=== PATIENT | female | born 1950 ===

== ENCOUNTER → 2020-05-03 13:06 | Outpatient (BNVA) | payer OTHER, SELFPAY | PROVIDERS: PCP Internal Medicine; Referring Provider Internal Medicine Geriatric Medicine; Visit Provider Internal Medicine Pulmonary Disease | DX: Z76.89 Persons encountering health services in other specified circumstances (principal) ==

== ENCOUNTER → 2020-06-18 10:02 | Outpatient (BNVA) | payer OTHER, SELFPAY | PROVIDERS: PCP Internal Medicine; Visit Provider Internal Medicine Pulmonary Disease | DX: Z76.89 Persons encountering health services in other specified circumstances (principal) ==

== ENCOUNTER → 2020-11-04 08:58 | Outpatient (BNVA) | payer OTHER, SELFPAY | PROVIDERS: PCP Internal Medicine; Visit Provider Internal Medicine Pulmonary Disease ==

== ENCOUNTER → 2021-05-10 08:49 | Outpatient (BNVA) | payer OTHER, SELFPAY | PROVIDERS: PCP Internal Medicine; Visit Provider Internal Medicine Pulmonary Disease ==

== ENCOUNTER → 2021-11-04 08:26 | Outpatient (BNVA) | payer OTHER, MEDICARE, SELFPAY | PROVIDERS: PCP Internal Medicine; Visit Provider Internal Medicine Pulmonary Disease | DX: J44.9 Chronic obstructive pulmonary disease, unspecified (principal); Z91.09 Other allergy status, other than to drugs and biological substances | CPT/HCPCS: 99212 ==

== ENCOUNTER 2022-08-21 08:46 | Outpatient (REF) | payer OTHER, MEDICARE, SELFPAY ==
--- NOTE | 2022-08-21 13:11 | PFT_ITS ---
INDICATION: COPD. SPIROMETRY: FEV1 to FVC of 63% with an FEV1 of 1.79 L, which is 87% predicted and an FVC of 2.88 L, which is 105% predicted. No significant response to bronchodilators noted. Maximum voluntary ventilation 82% predicted. LUNG VOLUMES: Total lung capacity 99% predicted with expiratory residual volume 126% predicted. DIFFUSION CAPACITY: DLCO of 68% predicted. COMPARISONS: None. INTERPRETATION: There is an obstructive ventilatory defect consistent of mild COPD. No significant response to bronchodilators noted. Normal maximum voluntary ventilation. Lung volumes are within normal limits; however, the patient does have a moderate diffusion impairment. Need to consider underlying emphysematous changes and/or other parenchymal lung conditions should be considered. Clinical correlation warranted. Flaco Blank MD MR/MODJewell / [id number]
== END 2022-08-21 08:47 | disposition home or self-care (01) ==
LOC: HO.RESP 08:46
PROVIDERS: PCP Internal Medicine; Visit Provider Internal Medicine Pulmonary Disease
DX: J44.9 Chronic obstructive pulmonary disease, unspecified (principal)
CPT/HCPCS: 94060; 94727; 94729

== ENCOUNTER → 2022-12-01 09:07 | Outpatient (BNVA) | payer OTHER, MEDICARE, SELFPAY | PROVIDERS: PCP Internal Medicine; Visit Provider Internal Medicine Pulmonary Disease ==

== ENCOUNTER 2023-05-18 08:08 | Day surgery (SDC) | payer OTHER, MEDICARE, SELFPAY ==
--- NOTE | 2023-05-17 10:50 | P.CONAN_ITS ---
HPI - Anesthesia Eval Consult details Narrative: 72yo F for Colonoscopy PMFSH Active Problems Active Problems: All Active Problems (Updated 05/17/23 @ 08:17 by Ashleigh Perry) Pulmonary nodules (Acute) Environmental allergies (Acute) Dyspnea on exertion (Acute) Moderate COPD (chronic obstructive pulmonary disease) (Acute) Past Medical History Medical History Anxiety and depression Migraine headache Degenerative joint disease Osteoporosis Lung nodule COPD (chronic obstructive pulmonary disease) Diabetes mellitus, type 2 Personal history of nicotine dependence History of thyroid cancer History of colon cancer (~2016) GERD (gastroesophageal reflux disease) HLD (hyperlipidemia) HTN (hypertension) Hypothyroidism, postsurgical Primary adenocarcinoma of lower lobe of right lung (~2019) Family History Family History Mother Breast cancer Surgical History Surgical History History of hysterectomy History of thyroidectomy History of lobectomy of lung (~2019) History of partial colectomy (~2016) Social History Social History Patient Tobacco Use Status: Never used Tobacco Years Smoked: 56 years Use of substances other than those prescribed or required for medical reasons: No Are you DNR?: No Advance Directives: No Advance Directives Information Provided: Yes Meds Allergies Allergy/AdvReac Type Severity Reaction Status Date / Time bee pollen [BEE STINGS] Allergy Unknown SWELLING Verified 05/18/23 08:44 dexamethasone [From DECADRON] Allergy Unknown PARANOIA Verified 05/18/23 08:44 grass pollen Allergy Unknown Verified 05/18/23 08:44 ragweed pollen Allergy Unknown Verified 05/18/23 08:44 sulfamethoxazole Allergy Rash Verified 05/18/23 08:44 [From Bactrim] trimethoprim [From Bactrim] Allergy Rash Verified 05/18/23 08:44 Home Medications Medication Instructions Recorded Confirmed Last Taken Type acetaminophen 300 mg-codeine 30 mg 1 tab PO DAILY PRN Pain 05/03/20 05/18/23 Unknown History tablet ciclopirox 1 % shampoo 1 ml topical DAILY 05/03/20 05/18/23 Unknown History ergocalciferol (vitamin D2) 1,250 1,250 mcg PO QWEEK 05/03/20 05/18/23 Unknown History mcg (50,000 unit) capsule ipratropium 20 mcg-albuterol 100 1 puff inhalation QID 05/03/20 05/18/23 Unknown History mcg/actuation mist for inhalation levothyroxine 125 mcg tablet 125 mcg PO DAILY 05/03/20 05/18/23 Unknown History lisinopril 30 mg tablet 30 mg PO DAILY 05/03/20 05/18/23 05/18/23 History lorazepam 1 mg tablet 1 mg PO TID 05/03/20 05/18/23 Unknown History omeprazole 20 mg capsule,delayed 20 mg PO DAILY 05/03/20 05/18/23 Unknown H istory release brimonidine 0.2 % eye drops 1 drp ophthalmic (eye) BID 05/17/23 05/17/23 Unknown History bupropion HCl 150 mg tablet,12 hr 150 mg PO BID 05/17/23 05/17/23 Unknown History sustained-release glipizide 2.5 mg tablet, extended 2.5 mg PO DAILY 05/17/23 05/17/23 Unknown History release 24 hr ipratropium 20 mcg-albuterol 100 1 - 2 puff inhalation Q4H PRN 05/17/23 05/17/23 Unknown History mcg/actuation mist for inhalation asthma (Combivent Respimat) methocarbamol 750 mg tablet 750 mg PO QID 05/17/23 05/17/23 Unknown History rosuvastatin 5 mg tablet 5 mg PO DAILY 05/17/23 05/17/23 Unknown History Exam Exam Date and Time: May 17, 2023 1050 Assessment and Plan Assessment Anesthesia Assessment: Chart Reviewed
[2023-05-18 08:31] VITALS: BMI 26.4
--- NOTE | 2023-05-18 08:39 | HO.ANESPROP2 ---
[facility] Active Problems Active Problems: All Active Problems (Updated 05/17/23 @ 08:17 by Ashleigh Perry) Pulmonary nodules (Acute) Environmental allergies (Acute) Dyspnea on exertion (Acute) Moderate COPD (chronic obstructive pulmonary disease) (Acute) Past Medical History Medical History Anxiety and depression Migraine headache Degenerative joint disease Osteoporosis Lung nodule COPD (chronic obstructive pulmonary disease) Diabetes mellitus, type 2 Personal history of nicotine dependence History of thyroid cancer History of colon cancer (~2016) GERD (gastroesophageal reflux disease) HLD (hyperlipidemia) HTN (hypertension) Hypothyroidism, postsurgical Primary adenocarcinoma of lower lobe of right lung (~2019) Functional capacity: independent ambulation Family History Family History Mother Breast cancer Surgical History Surgical History History of hysterectomy History of thyroidectomy History of lobectomy of lung (~2019) History of partial colectomy (~2016) Social History Social History Years Smoked: 56 years Advance Directives: No Advance Directives Information Provided: Yes Meds Allergies Allergy/AdvReac Type Severity Reaction Status Date / Time bee pollen [BEE STINGS] Allergy Unknown SWELLING Verified 12/01/22 09:13 dexamethasone [From DECADRON] Allergy Unknown PARANOIA Verified 12/01/22 09:13 grass pollen Allergy Unknown Verified 12/01/22 09:13 ragweed pollen Allergy Unknown Verified 12/01/22 09:13 sulfamethoxazole Allergy Rash Verified 05/17/23 08:11 [From Bactrim] trimethoprim [From Bactrim] Allergy Rash Verified 05/17/23 08:11 Active Medications: Current Medications Albuterol Sulfate (Albuterol Sulfate (0.083%) 2.5 Mg/3 Ml Vial.Neb) 2.5 mg INHALE ONCE PRN PRN Reason: Shortness of Breath/Wheezing Lactated Ringer's (Lr) 1,000 mls @ 100 mls/hr IVCONT .Q10H [facility] Home Medications Medication Instructions Recorded Confirmed Last Taken Type acetaminophen 300 mg-codeine 30 mg tab PO 05/03/20 Unknown History tablet ciclopirox 1 % shampoo ml topical 05/03/20 Unknown History ergocalciferol (vitamin D2) 1,250 1,250 mcg PO QWEEK 05/03/20 Unknown History mcg (50,000 unit) capsule ipratropium 20 mcg-albuterol 100 1 puff inhalation QID 05/03/20 Unknown History mcg/actuation mist for inhalation levothyroxine 125 mcg tablet mcg PO 05/03/20 Unknown History lisinopril 30 mg tablet 30 mg PO DAILY 05/03/20 Unknown History lorazepam 1 mg tablet 1 mg PO TID 05/03/20 Unknown History omeprazole 20 mg capsule,delayed 20 mg PO DAILY 05/03/20 Unknown History release brimonidine 0.2 % eye drops 1 drp ophthalmic (eye) BID 05/17/23 05/17/23 Unknown History bupropion HCl 150 mg tablet,12 hr 150 mg PO BID 05/17/23 05/17/23 Unknown History sustained-release glipizide 2.5 mg tablet, extended 2.5 mg PO DAILY 05/17/23 05/17/23 Unknown History release 24 hr ipratropium 20 mcg-albuterol 100 1 - 2 puff inhalation Q4H PRN 05/17/23 05/17/23 Unknown History mcg/actuation mist for inhalation asthma (Combivent Respimat) methocarbamol 750 mg tablet 750 mg PO QID 05/17/23 05/17/23 Unknown History rosuvastatin 5 mg tablet 5 mg PO DAILY 05/17/23 05/17/23 Unknown History terbinafine HCl 250 mg tablet 250 mg PO DAILY 05/17/23 05/17/23 Unknown History Exam Exam Date and Time: May 18, 2023 0839 Airway Mallampati Class: II TM Dist: >3cm Neck ROM: Full Denture: Upper and Lower Heart: RRR Lungs: CTA Assessment and Plan Assessment Anesthesia Assessment: Anesthesia Plan Discussed Final Anesthetic Review ASA Class: II and III Final Preanesthetic Review: Meds/Allgs Chart Reviewed, Consent Obtained/Reviewed and Anes Risks/Benef Reviewed Patient Risk: Low Procedure Risk: Low Anesthetic Plan Anesthetic Plan: MAC: Disposition: Standard PACU
[2023-05-18] MEDS: Lactated Ringers 1,000 ML 100 ML IVCONT (08:50)
[2023-05-18 08:54] VITALS: BP 121/87; PULSE 95; RESP 16; TEMP 36.2; O2SAT 95
[2023-05-18 09:13] LABS: Glucose, Whole Blood 163 mg/dL (60-115)
--- NOTE | 2023-05-18 09:50 | MHC.SHP ---
Pre-Procedural Eval Section A Date of Service: 05/18/23 Section B Chief Complaint: hx malignant neoplasm,screening Details of Present Illness: see H&P no changes Relevant Family History (Specify if Yes): No Relevant Social History: None Present Medications: see Short Stay Collaborative assessment Medical History: No relevant PMH History of Previous Operations: No relevant previous surgery Allergies: Allergies Allergy/AdvReac Type Severity Reaction Status Date / Time bee pollen [BEE STINGS] Allergy Unknown SWELLING Verified 05/18/23 08:44 dexamethasone [From DECADRON] Allergy Unknown PARANOIA Verified 05/18/23 08:44 grass pollen Allergy Unknown Verified 05/18/23 08:44 ragweed pollen Allergy Unknown Verified 05/18/23 08:44 sulfamethoxazole Allergy Rash Verified 05/18/23 08:44 [From Bactrim] trimethoprim [From Bactrim] Allergy Rash Verified 05/18/23 08:44 Review of Systems Sugical H&P ROS: Negative: Constitution, Cardiovascular, Respiratory, Neurological, Psychiatric, Hem-Onc, Allergic/Immunologic, Gastrointestinal, Genitourinary, Musculoskeletal, Integumentary, Endocrine and Eyes/Ears/Nose/Throat Exam Surgical H&P Exam: Normal: HEENT, Normal: Heart, Normal: Lungs, Normal: Extremities, Normal: Abdomen, Normal: Skin and Normal: Neurological Plan Diagnosis/Plan: Unchanged I have reviewed the history and physical and performed a pertinent physical examination on my patient. No changes have occurred unless specified. Time Spent With Patient Time: Total time managing care of this patient today ____ minutes.
--- NOTE | 2023-05-18 10:25 | P.BOP_ITS ---
Brief Operative Note Date of Service: 05/18/23 Pre-op diagnosis: screening Post-op diagnosis: same Surgeon: Gonzalo Stephen MD Anesthesia: MAC Was an Medical Territory Manager used for this Procedure?: No Estimated blood loss (mL): 2 Pathology: other Condition: stable Disposition: PACU
[2023-05-18 10:26] VITALS: BP 83/50; PULSE 75; RESP 16; TEMP 36.2; O2SAT 94
[2023-05-18 10:31] VITALS: BP 96/56; PULSE 69; RESP 20; O2SAT 94
--- NOTE | 2023-05-18 10:39 | HO.POSTANES ---
Post Anesthesia Evaluation Post Anesthesia Evaluation Date of Service: 05/18/23 Vital Signs: Vital Signs Temp Pulse Resp BP Pulse Ox O2 Del Method 05/18/23 10:31 69 20 96/56 L 94 Room Air 05/18/23 10:26 97.1 F 75 16 83/50 L 94 Room Air 05/18/23 08:54 97.1 F 95 16 121/87 95 Room Air Anesthesia: Monitored Mental Status: Awake Pain Control: Satisfactory Nausea/Vomiting: None Hydration: Adequate Anesthesia-Related Issues: No Anes. Related Issues
[2023-05-18 10:41] VITALS: BP 124/69; PULSE 72; RESP 20; TEMP 36.3; O2SAT 97
--- NOTE | 2023-05-18 11:07 | OP_ITS ---
DATE OF SERVICE: 05/18/2023 SURGEON: Gonzalo Stephen MD INDICATIONS: Colon cancer screening and personal history of colon cancer. PREOPERATIVE DIAGNOSIS: POSTOPERATIVE DIAGNOSIS: PROCEDURE PERFORMED: Colonoscopy to the neoterminal ileum with biopsy. ESTIMATED BLOOD LOSS: COMPLICATIONS: ANESTHESIA: Monitored anesthesia care. ASSISTANTS: SPECIMENS: DESCRIPTION OF PROCEDURE: A history and physical was performed. The risks and benefits of the procedure were explained to the patient. Informed consent was obtained. The patient was placed in the left lateral decubitus position. A digital rectal exam was performed and was found to be normal. The Olympus pediatric video colonoscope was introduced into the rectum and advanced to the ileocolonic anastomosis. The examination was performed. The scope was removed. She tolerated the procedure well and was returned to the recovery area in stable condition. FINDINGS: There was a patent ileocolonic anastomosis in the right colon from her previous surgery. This showed no evidence of recurrent carcinoma. The neoterminal ileum was examined for approximately 15 to 20 cm and appeared normal. The remainder of the colonic mucosa appeared within normal limits without evidence of masses or ulcers. In the rectum, were several hyperplastic appearing polyps measuring less than 5 mm. Two of these were biopsied. There was mild sigmoid diverticulosis. The quality of the prep was good. Retroflexed examination showed some hypertrophic anal papillae. IMPRESSION: Colon polyps. RECOMMENDATION: Follow up the biopsy results. MD LEONEL Velazquez/THANH / [id number] MTDD
== END 2023-05-18 11:03 | disposition home or self-care (01) ==
PROVIDERS: PCP Internal Medicine; Visit Provider Internal Medicine Gastroenterology
PROC: 0DJD8ZZ Inspection of Lower Intestinal Tract, Via Natural or Artificial Opening Endoscopic (ICD-10-PCS; CPT 45378; principal; 2023-05-18 09:40)
DX: Z12.11 Encounter for screening for malignant neoplasm of colon (principal); Z85.038 Personal history of other malignant neoplasm of large intestine; K62.1 Rectal polyp; Z98.0 Intestinal bypass and anastomosis status; Z90.49 Acquired absence of other specified parts of digestive tract; K57.30 Diverticulosis of large intestine without perforation or abscess without bleeding; K62.89 Other specified diseases of anus and rectum; I10 Essential (primary) hypertension; J44.9 Chronic obstructive pulmonary disease, unspecified; R91.1 Solitary pulmonary nodule; Z90.2 Acquired absence of lung [part of]; E78.5 Hyperlipidemia, unspecified; F41.8 Other specified anxiety disorders; M81.0 Age-related osteoporosis without current pathological fracture; M19.90 Unspecified osteoarthritis, unspecified site; E11.9 Type 2 diabetes mellitus without complications; Z79.84 Long term (current) use of oral hypoglycemic drugs; Z79.51 Long term (current) use of inhaled steroids; Z79.899 Other long term (current) drug therapy; Z85.850 Personal history of malignant neoplasm of thyroid; Z87.891 Personal history of nicotine dependence
CPT/HCPCS: 45380; 82947; 88305

== ENCOUNTER 2023-06-26 09:20 | Outpatient (AMB) | payer OTHER, MEDICARE, SELFPAY ==
[2023-06-26 09:21] VITALS: BP 150/64; PULSE 85; O2SAT 98; BMI 25.8
--- NOTE | 2023-06-26 09:21 | A.OFFVIS_ITS ---
Intake Vital Signs 06/26/23 09:21 Height 5 ft 3 in Weight 145 lb 8.081 oz BMI 25.8 BP 150/64 H Blood Pressure Location Lt brachial Position Sitting Pulse 85 Pulse Source Doppler Pulse Oximetry (%) 98 Oxygen Delivery Method Room Air Intake Visit Reasons: COPD Allergies bee pollen [BEE STINGS] Allergy (Unknown, Verified 06/26/23 09:26) SWELLING dexamethasone [From DECADRON] Allergy (Unknown, Verified 06/26/23 09:26) PARANOIA grass pollen Allergy (Verified 06/26/23 09:) Unknown ragweed pollen Allergy (Verified 06/26/23 09:) Unknown sulfamethoxazole [From Bactrim] Allergy (Verified 06/26/23:) Rash trimethoprim [From Bactrim] Allergy (Verified 06/26/23:) Rash HPI COPD HPI Details 72-year-old lady, former 55 pack years+ smoker, quit 2015 with history of right lower lobe lobectomy for adenocarcinoma in February of 2020 followed for moderate COPD.? She continues to use Anoro and Combivent with good control of her underlying symptoms.? She denies any recent COPD exacerbations.? She was evaluated by ENT and noted to have deviated septum. No significant changes since last visit. She continues to follow-up with thoracic surgery for underlying history of right lower lobe lobectomy for adenocarcinoma. [facility] Medical History Anxiety and depression Migraine headache Degenerative joint disease Osteoporosis Lung nodule COPD (chronic obstructive pulmonary disease) Diabetes mellitus, type 2 Personal history of nicotine dependence History of thyroid cancer History of colon cancer (~2016) GERD (gastroesophageal reflux disease) HLD (hyperlipidemia) HTN (hypertension) Hypothyroidism, postsurgical Primary adenocarcinoma of lower lobe of right lung (~2019) Surgical History History of hysterectomy History of thyroidectomy History of lobectomy of lung (~2019) History of partial colectomy (~2016) Family History Mother Breast cancer Patient Tobacco Use Status: Never used Tobacco Years Smoked: 56 years Review of Systems Const Denies daytime sleepiness, Denies excessive sweating, Denies fatigue, Denies fever(s), Denies lethargy, Denies malaise, Denies night sweats, Denies snoring and Denies weight loss Eyes Denies blurry vision and Denies itchy eyes ENT Denies nasal congestion, Denies post nasal drip, Denies sinus pain, Denies sinus pressure and Denies other ( Thrush) Card Denies chest pain, Denies pedal edema, Denies dyspnea, Denies orthopnea and Denies paroxysmal nocturnal dyspnea Resp Denies cough, Denies hemoptysis, Denies excessive phlegm production, Denies dyspnea, Denies snoring and Denies wheezing GI Denies abdominal pain and Denies heartburn Musc Denies myalgias, Denies arthralgias and Denies joint swelling Skin/Breast Denies rash Neuro Denies memory loss and Denies seizure-like activity Psych Denies abnormal sleep pattern, Denies anxiety and Denies memory loss Endo Denies excessive sweating, Denies fatigue and Denies heat intolerance Alexander/Lymph Denies easy bruising Aller/Immun Denies itchy eyes, Denies seasonal rhinorrhea and Denies wheezing Physical Exam Vital Signs: Last Vital Signs Pulse 85 06/26/23 09:21 BP 150/64 H 06/26/23 09:21 Pulse Ox 98 06/26/23 09:21 Oxygen Delivery Method Room Air 06/26/23 09:21 BMI result Body Mass Index 25.8 Const General: no acute distress and alert Nutritional Appearance: not obese Orientation/consciousness: Other orientation findings ( oriented) HEENT Head: Yes atraumatic Eyes General: appearance normal, both eyes and all related structures Sclerae: sclerae normal EOM: EOMs intact bilaterally Neck Neck: Yes supple Lymphatic: no lymphadenopathy noted Resp Effort & Inspection: normal respiratory effort and no use of accessory muscles Auscultation: clear to auscultation bilaterally Cardio Rate: regular rate Rhythm: regular rhythm Heart sounds: no gallops, no murmurs and no rubs Skin General skin exam: other ( warm) Extrem General: No clubbing, No cyanosis and No edema Assessment & Plan Assessment & Plan (1) Moderate COPD (chronic obstructive pulmonary disease): Code(s): J44.9 - Chronic obstructive pulmonary disease, unspecified Plan: Well controlled on current regimen of Anoro and Combivent. Continue current regimen (2) Pulmonary nodules: Code(s): R91.8 - Other nonspecific abnormal finding of lung field Plan: Status post right lower lobe lobectomy for adenocarcinoma. Patient continues to follow-up with thoracic surgery. Medications: Refilled umeclidinium-vilanterol 62.5-25 mcg/actuation (Anoro Ellipta) 1 ea PO DAILY 180 ea 3RF Coding Level of Care Code Est Pt Level 4 (51981) Diagnoses Moderate COPD (chronic obstructive pulmonary disease) J44.9 Pulmonary nodules R91.8
== END 2023-06-26 10:11 | disposition home or self-care (01) ==
PROVIDERS: PCP Internal Medicine; Visit Provider Internal Medicine Pulmonary Disease
DX: J44.9 Chronic obstructive pulmonary disease, unspecified (principal); R91.8 Other nonspecific abnormal finding of lung field
CPT/HCPCS: 99214

== ENCOUNTER → 2023-06-26 09:20 | Outpatient (BNVA) | payer OTHER, MEDICARE, SELFPAY | PROVIDERS: PCP Internal Medicine; Visit Provider Internal Medicine Pulmonary Disease ==

== ENCOUNTER 2024-06-20 10:07 | Outpatient (AMB) | payer OTHER, MEDICARE, SELFPAY ==
--- NOTE | 2024-06-20 10:11 | A.OFFVIS_ITS ---
Vital Signs 06/20/24 10:12 Height 5 ft 3 in Weight 145 lb 8.081 oz BMI 25.8 BP 122/78 Blood Pressure Location Lt brachial Position Sitting Pulse 103 H Pulse Source Doppler Pulse Oximetry (%) 96 Oxygen Delivery Method Room Air Intake Visit Reasons: COPD Allergies bee pollen [BEE STINGS] Allergy (Unknown, Verified 06/26/23 09:26) SWELLING dexamethasone [From DECADRON] Allergy (Unknown, Verified 06/26/23 09:26) PARANOIA grass pollen Allergy (Verified 06/26/23 09:) Unknown ragweed pollen Allergy (Verified 06/26/23 09:) Unknown sulfamethoxazole [From Bactrim] Allergy (Verified 06/26/23:) Rash trimethoprim [From Bactrim] Allergy (Verified 06/26/23) Rash HPI HPI COPD: Details: 73-year-old lady, former 55 pack years+ smoker, quit 2015 with history of right lower lobe lobectomy for adenocarcinoma in February of 2020 followed for moderate COPD.? She continues to use Anoro and Combivent with good control of her underlying symptoms.? She denies any recent COPD exacerbations.?She continues to follow-up with thoracic surgery for underlying history of right lower lobe lobectomy for adenocarcinoma. [facility] Medical History (Updated 06/20/24 @ 10:29 by Vitaliy Pino MD) Anxiety and depression Migraine headache Degenerative joint disease Osteoporosis Lung nodule COPD (chronic obstructive pulmonary disease) Diabetes mellitus, type 2 Personal history of nicotine dependence History of thyroid cancer History of colon cancer (~2016) GERD (gastroesophageal reflux disease) HLD (hyperlipidemia) HTN (hypertension) Hypothyroidism, postsurgical Primary adenocarcinoma of lower lobe of right lung (~2019) Surgical History History of hysterectomy History of thyroidectomy History of lobectomy of lung (~2019) History of partial colectomy (~2016) Family History Mother Breast cancer Social History Patient Tobacco Use Status: Never used Tobacco Years Smoked: 56 years Review of Systems Const Denies daytime sleepiness, Denies excessive sweating, Denies fatigue, Denies fever(s), Denies lethargy, Denies malaise, Denies night sweats, Denies snoring and Denies weight loss Eyes Denies blurry vision and Denies itchy eyes ENT Denies nasal congestion, Denies post nasal drip, Denies sinus pain, Denies sinus pressure and Denies other ( Thrush) Card Denies chest pain, Denies pedal edema, Denies dyspnea, Denies orthopnea and Denies paroxysmal nocturnal dyspnea Resp Denies cough, Denies hemoptysis, Denies excessive phlegm production, Denies dyspnea, Denies snoring and Denies wheezing GI Denies abdominal pain and Denies heartburn Musc Denies myalgias, Denies arthralgias and Denies joint swelling Skin/Breast Denies rash Neuro Denies memory loss and Denies seizure-like activity Psych Denies abnormal sleep pattern, Denies anxiety and Denies memory loss Endo Denies excessive sweating, Denies fatigue and Denies heat intolerance Alexander/Lymph Denies easy bruising Aller/Immun Denies itchy eyes, Denies seasonal rhinorrhea and Denies wheezing Physical Exam Vital Signs: Last Vital Signs Pulse 103 H 06/20/24 10:12 BP 122/78 06/20/24 10:12 Pulse Ox 96 06/20/24 10:12 Oxygen Delivery Method Room Air 06/20/24 10:12 BMI result Body Mass Index 25.8 Const General: no acute distress and alert Nutritional Appearance: not obese Orientation/consciousness: Other orientation findings ( oriented) HEENT Head: Yes atraumatic Eyes General: appearance normal, both eyes and all related structures Sclerae: sclerae normal EOM: EOMs intact bilaterally Neck Neck: Yes supple Lymphatic: no lymphadenopathy noted Resp Effort & Inspection: normal respiratory effort and no use of accessory muscles Auscultation: clear to auscultation bilaterally Cardio Rate: regular rate Rhythm: regular rhythm Heart sounds: no gallops, no murmurs and no rubs Skin General skin exam: other ( warm) Extrem General: No clubbing, No cyanosis and No edema Assessment & Plan Assessment & Plan (1) Moderate COPD (chronic obstructive pulmonary disease): Code(s): J44.9 - Chronic obstructive pulmonary disease, unspecified Category: Medical Plan: Well controlled current regimen of Anoro and Combivent. Continue current regimen. (2) Primary adenocarcinoma of lower lobe of right lung: Onset Date: ~2019 Comment: (s/p RLL lobectomy 02/2020) Code(s): C34.31 - Malignant neoplasm of lower lobe, right bronchus or lung Category: Medical Plan: Continues to follow-up with thoracic surgery. No recurrence on most recent CT chest approximately 1 months prior to this visit, per patient. Coding Level of Care Code Est Pt Level 4 (59632) Diagnoses Moderate COPD (chronic obstructive pulmonary disease) J44.9 Primary adenocarcinoma of lower lobe of right lung C34.31
[2024-06-20 10:12] VITALS: BP 122/78; PULSE 103; O2SAT 96; BMI 25.8
== END 2024-06-20 10:28 | disposition home or self-care (01) ==
PROVIDERS: PCP Internal Medicine; Visit Provider Internal Medicine Pulmonary Disease
DX: J44.9 Chronic obstructive pulmonary disease, unspecified (principal); C34.31 Malignant neoplasm of lower lobe, right bronchus or lung
CPT/HCPCS: 99214

== ENCOUNTER → 2024-06-20 10:07 | Outpatient (BNVA) | payer OTHER, MEDICARE, SELFPAY | PROVIDERS: PCP Internal Medicine; Visit Provider Internal Medicine Pulmonary Disease ==

== ENCOUNTER 2025-06-17 08:52 | Outpatient (AMB) | payer OTHER, MEDICARE, SELFPAY ==
[2025-06-17 09:13] VITALS: BP 138/70; PULSE 91; O2SAT 99; BMI 24.6
--- NOTE | 2025-06-17 09:13 | A.OFFVIS_ITS ---
Vital Signs 06/17/25 09:13 Height 5 ft 3 in Weight 139 lb BMI 24.6 BP 138/70 Blood Pressure Location Rt brachial Position Sitting Pulse 91 Pulse Source Pulse Oximeter Pulse Oximetry (%) 99 Oxygen Delivery Method Room Air Intake Visit Reasons: COPD Allergies bee pollen (BEE STINGS) Allergy (Unknown, Verified 06/17/25 09:18) SWELLING dexamethasone (From DECADRON) Allergy (Unknown, Verified 06/17/25 09:18) PARANOIA grass pollen Allergy (Verified 06/17/25 09:18) Unknown ragweed pollen Allergy (Verified 06/17/25 09:18) Unknown sulfamethoxazole (From Bactrim) Allergy (Verified 06/17/25 09:18) Rash trimethoprim (From Bactrim) Allergy (Verified 06/17/25 09:18) Rash HPI HPI COPD: Details: 74-year-old lady, former 55 pack years+ smoker, quit 2015 with history of right lower lobe lobectomy for adenocarcinoma in February of 2020 followed for moderate COPD.? She continues to use Anoro and Combivent with good control of her underlying symptoms.? She denies any recent COPD exacerbations.?She continues to follow-up with thoracic surgery for underlying history of right lower lobe lobectomy for adenocarcinoma with recent follow-up CAT scan in April of 2025 showing no recurrence per patient's report. [facility] Medical History (Updated 06/20/24 @ 10:29 by Vitaliy Pino MD) Anxiety and depression Migraine headache Degenerative joint disease Osteoporosis Lung nodule COPD (chronic obstructive pulmonary disease) Diabetes mellitus, type 2 Personal history of nicotine dependence History of thyroid cancer History of colon cancer (~2016) GERD (gastroesophageal reflux disease) HLD (hyperlipidemia) HTN (hypertension) Hypothyroidism, postsurgical Primary adenocarcinoma of lower lobe of right lung (~2019) Surgical History History of hysterectomy History of thyroidectomy History of lobectomy of lung (~2019) History of partial colectomy (~2016) Family History Mother Breast cancer Social History Patient Tobacco Use Status: Never used Tobacco Years Smoked: 56 years Review of Systems Const Denies daytime sleepiness, Denies excessive sweating, Denies fatigue, Denies fever(s), Denies lethargy, Denies malaise, Denies night sweats, Denies snoring and Denies weight loss Eyes Denies blurry vision and Denies itchy eyes ENT Denies nasal congestion, Denies post nasal drip, Denies sinus pain, Denies sinus pressure and Denies other ( Thrush) Card Denies chest pain, Denies pedal edema, Denies dyspnea, Denies orthopnea and Denies paroxysmal nocturnal dyspnea Resp Denies cough, Denies hemoptysis, Denies excessive phlegm production, Denies dyspnea, Denies snoring and Denies wheezing GI Denies abdominal pain and Denies heartburn Musc Denies myalgias, Denies arthralgias and Denies joint swelling Skin/Breast Denies rash Neuro Denies memory loss and Denies seizure-like activity Psych Denies abnormal sleep pattern, Denies anxiety and Denies memory loss Endo Denies excessive sweating, Denies fatigue and Denies heat intolerance Alexander/Lymph Denies easy bruising Aller/Immun Denies itchy eyes, Denies seasonal rhinorrhea and Denies wheezing Physical Exam Vital Signs: Last Vital Signs Pulse 91 06/17/25 09:13 BP 138/70 06/17/25 09:13 Pulse Ox 99 06/17/25 09:13 Oxygen Delivery Method Room Air 06/17/25 09:13 BMI result Body Mass Index 24.6 Const General: no acute distress and alert Nutritional Appearance: not obese Orientation/consciousness: Other orientation findings ( oriented) HEENT Head: Yes atraumatic Eyes General: appearance normal, both eyes and all related structures Sclerae: sclerae normal EOM: EOMs intact bilaterally Neck Neck: Yes supple Lymphatic: no lymphadenopathy noted Resp Effort & Inspection: normal respiratory effort and no use of accessory muscles Auscultation: clear to auscultation bilaterally Cardio Rate: regular rate Rhythm: regular rhythm Heart sounds: no gallops, no murmurs and no rubs Skin General skin exam: other ( warm) Extrem General: No clubbing, No cyanosis and No edema Assessment & Plan Assessment & Plan (1) Moderate COPD (chronic obstructive pulmonary disease): Code(s): J44.9 - Chronic obstructive pulmonary disease, unspecified Category: Medical Plan: Well controlled on Anoro and Combivent. Continue current regimen. (2) Primary adenocarcinoma of lower lobe of right lung: Onset Date: ~2019 Comment: (s/p RLL lobectomy 02/2020) Code(s): C34.31 - Malignant neoplasm of lower lobe, right bronchus or lung Category: Medical Plan: Continues to follow-up with thoracic surgery, most recent CT scan in April of 2025 with no recurrence per patient's report. Coding Level of Care Code Est Pt Level 4 (17264) Diagnoses Moderate COPD (chronic obstructive pulmonary disease) J44.9 Primary adenocarcinoma of lower lobe of right lung C34.31
--- OUTSIDE RECORDS SUMMARY | 2025-06-17 16:30 | XMS_ITS | Clinical Summary ---
Author Organization [facility] Address [address] [address] Phone Care Team Providers Care Waste Reclaimer Name Role Phone Gulshan Zeng MD Primary Care Provider + Allergies Active Allergy Reactions Criticality Noted Date Comments Bee Pollen Anaphylaxis High 03/08/2010 Bee Venom Protein (Honey Bee) Anaphylaxis High 03/08/2010 Chlorthalidone 11/04/2018 Dexamethasone 03/08/2010 Other reaction(s): Other (See Comments) Irritation,shakiness,p aranoid Hydromorphone 06/11/2016 Other 03/08/2010 Sulfa (Sulfonamide Antibiotics) Itching 03/08/2010 Medications glipiZIDE (GLUCOTROL XL) 2.5 MG 24 hr tablet Take 1 tablet by mouth every morning. 3 Active buPROPion (WELLBUTRIN SR) 150 MG SR 12 hr tablet Take 1 tablet by mouth 2 (two) times a day. 3 Active rosuvastatin (CRESTOR) 5 MG tablet Take 1 tablet by mouth every morning. 3 Active omeprazole (PRILOSEC) 20 MG capsule Take 1 capsule by mouth every morning. 3 Active lisinopril (PRINIVIL,ZESTRIL) 10 MG tablet Take 30 mg by mouth daily. Active LORazepam (ATIVAN) 1 MG tablet Take 1 mg by mouth. Active methocarbamoL (ROBAXIN) 750 MG tablet TAKE 1 TABLET BY MOUTH 4 TIMES DAILY FOR 10 DAYS. 3 Active umeclidinium-vilant Teofilo (ANORO ELLIPTA) 62.5-25 mcg/actuation diskus inhaler Inhale into the lungs. Active ipratropium-albuter oL (COMBIVENT RESPIMAT) 20-100 mcg/actuation Mist Inhale 1 puff into the lungs 4 (four) times a day. Active levothyroxine (SYNTHROID, LEVOTHROID) 137 MCG tabletIndications:P ostoperative hypothyroidism Take 1 tablet (137 mcg total) by mouth every morning. 90 tablet 3 4 Active azelastine-fluticas one (DYMISTA) 137-50 mcg/spray [place] 1 spray by Nasal route as needed. Active brimonidine (ALPHAGAN) 0.2 % ophthalmic solution Place 1 drop into each eye 2 (two) times a day. 5 Active butalbital-acetamin ophen-caffeine (FIORICET, ESGIC) 50-325-40 mg per tablet Take 1 tablet by mouth every 4 (four) hours as needed. Active butalbital-acetamin ldizm-csrvqryi-roxh ine (FIORICET WITH CODEINE) 48-516-91-30 mg Cap Take 1 capsule by mouth every 6 (six) hours as needed. 5 Active hydroCHLOROthiazide 12.5 MG tablet Take 1 tablet by mouth every morning. 5 Active lidocaine (LIDODERM) 5 % Place 1 patch onto the skin as needed. 5 Active loratadine (CLARITIN) 10 mg tablet Take 1 tablet by mouth every morning. 5 Active olmesartan (BENICAR) 40 mg tablet Take 40 mg by mouth daily. 5 04/22/20 26 Active timoloL (BETIMOL) 0.5 % ophthalmic solution Place 1 drop into each eye 3 (three) times a day. 5 Active Active Problems Problem Noted Date Diagnosed Date History of malignant neoplasm of colon 5 History of lung cancer 05/04/2025 CKD (chronic kidney disease) stage 2, GFR 60-89 ml/min 04/22/2025 Postoperative hypothyroidism 05/29/2023 Assessment & Plan (06/04/2025 9:09 AM EST): Clinically euthyroid. Reports good consistency taking rx appropriately. Will check labs & adjust rx as appropriate. To call/message via portal if hasn't heard from me with results within 1-2 weeks. If levels normal, will repeat labs yearly, sooner prn symptoms of thyroid dysfunction or > 10-15# weight change, or as otherwise clinically indicated. Assessment & Plan (06/04/2024 12:51 PM EST): Clinically euthyroid. Reports good consistency taking rx appropriately. Will check labs & adjust rx as appropriate. To call/message via portal if hasn't heard from me with results within 1-2 weeks. If levels normal, will repeat labs yearly, sooner prn symptoms of thyroid dysfunction or > 10-15# weight change, or as otherwise clinically indicated. Assessment & Plan (05/29/2023 11:33 AM EDT): Clinically euthyroid. Reports good consistency taking rx appropriately. Will check labs & adjust rx as appropriate. To call/message via portal if hasn't heard from me with results within 1-2 weeks. If levels normal, will repeat labs yearly, sooner prn symptoms of thyroid dysfunction or > 10-15# weight change, or as otherwise clinically indicated. Other emphysema 04/16/2021 05/29/2023 Primary adenocarcinoma of lower lobe of right nell ng 04/06/2020 05/29/2023 Thyroid cancer 05/09/2019 05/29/2023 Overview (06/04/2024): PAPILLARY CARCINOMA, TALL CELL VARIANT (co-dominant nodule). (A2) - PAPILLARY CARCINOMA, CLASSICAL TYPE (co-dominant nodule). (A13) - PAPILLARY CARCINOMA, FOLLICULAR VARIANT, ENCAPSULATED, NON-INVASIVE. TUMOR SIZE: 0.6 cm (two co-dominant nodules). EXTENT OF TUMOR: - TUMOR FOCALITY: multifocal, 6 tumor nodules. - TUMOR SITE: left lobe, middle (co-dominant nodule, 1 nodule), left lobe, middle-superior (1 nodule), right lobe, superior (co-dominant nodule, 2 nodules), right lobe, middle (2 nodules). - TUMOR IS LIMITED TO THE THYROID WITHOUT EXTRATHYROIDAL EXTENSION. MARGINS OF RESECTION: - MARGIN OF RESECTION IS FREE OF TUMOR. - PAPILLARY THRYOID CARCINOMA IS 0.5 MM CLOSEST TO THE POSTERIOR CAPSULE. LYMPH NODES: - NUMBER OF LYMPH NODES EXAMINED: 2. - NUMBER OF LYMPH NODES INVOLVED: 0. ADDITIONAL TUMOR FEATURES: - LYMPHATIC VESSEL INVASION: not identified. - BLOOD VESSEL INVASION: not identified. - PERINEURAL INVASION: not identified. - MUSCLE INVASION: not identified. ADDITIONAL FINDINGS: - Jean's thyroiditis, biopsy site changes, adenomatoid nodules with and without Hurthle cell metaplasia, one benign parathyroid gland. SPECIAL STAIN: - Elastic: negative for tumor blood vessel invasion. - Control stains appropriately. PATHOLOGIC TUMOR STAGE: mpT1a, pN0. Assessment & Plan (06/04/2025 9:08 AM EST): Papillary thyroid CA, incidental finding 2019 on PET scan, s/p total thyroidectomy (by Dr. Mendez), subcm, multifocal, tall cell & classic, largest 6 mm, OSORIO was not indicated. Her neck u/s 06/2023 was unremarkable and thyroglobulin has remained. Will repeat today. Assessment & Plan (06/04/2024 12:55 PM EST): Papillary thyroid CA, incidental finding 2019 on PET scan, s/p total thyroidectomy (by Dr. Mendez), OSORIO was not indicated. Her neck u/s last year was unremarkable and thyroglobulin was low. Will repeat thyroglobulin and antibodies. Will call again for records from [facility]. Assessment & Plan (05/29/2023 11:34 AM EDT): Will call for records from [facility]. Will check thyroglobulin & antibodies. Will repeat ultrasound. Controlled type 2 diabetes m iris without complication, without long-term current use of insulin 11/19/2018 05/29/2023 Essential hypertension 06/07/2017 Assessment & Plan (06/04/2025 9:10 AM EST): BP mildly high today. Had a stressful morning, has been good @ home/work. To monitor, follow up with PCP. Colon cancer, ascending 05/22/2017 05/29/20 DJD (degenerative joint disease), lumbosacral 05/29/2023 Allergic rhinitis 10/10/2012 05/29/2023 Vitiligo 08/08/2012 05/29/2023 Overview (05/29/2023): Overview: ? due to sunburn Migraines 09/11/2011 05/29/2023 Overview (05/29/2023): Overview: History of occular migraines since age 10 Osteoporosis 09/11/2011 05/29/2023 High cholesterol 04/12/2010 05/29/2023 Anxiety 03/08/2010 05/29/2023 Overview (05/29/2023): Overview: Patient rarely has panic attacks. And rarely uses lorazepam Depression 03/08/2010 05/29/2023 Heartburn 03/08/2010 05/29/2023 History of tobacco use 03/08/2010 Encounters Date Type Department Care Team Description 06/04/2025 8:40 AM EST Office Visit [facility] [address] [place] [address] Marci King MD Thyroid cancer (Primary Dx); Postoperative hypothyroidism; Essential hypertension from Last 3 Months Family History Medical History Relation Comments Diabetes Father Prostate cancer Maternal Uncle Breast cancer Mother Diabetes Paternal Grandmother Relation Status Comments Father Maternal Uncle Mother Paternal Grandmother Social History Tobacco Use Types Packs/Day Years Used Date Smoking Tobacco: Former Cigarettes Q uit: 2013 Passive Smoke Exposure: Past Smokeless Tobacco: Never Tobacco Cessation:Counseling Given: Not Answered Alcohol Use Standard Drinks/Week Comments Yes 0 (1 standard drink = 0.6 oz pur e alcohol) rarely Education Answer Date Recorded Are you interested in more education? Not on rodrigo e 03/09/2023 Are you concerned about learning? Not on file 03/09/2023 No 03/09/2023 No 03/09/2023 Digital Access Answer Date Recorded No 03/09/2023 No 03/09/2023 Reliable internet access at home? Not on file 03/09/2023 Device with a working camera? Not on file Comments Unknown Sex and Gender Information Value Date Recorded Sex Assigned at Not on file Legal Sex Female 10:03 AM EDT Gender Identity Not on file Sexual Orientation Not on file Last Filed Vital Signs Vital Sign Reading Time Taken Comments Blood Pressure 144/84 06/04/2025 8:55 AM EST Pulse 75 06/04/2025 8:44 AM EST Temperature 36.6 C (97.8 F) 05/29/2023 10:52 AM EDT Respiratory Rate 20 06/04/2025 8:44 AM EST Oxygen Saturation 98% 06/04/2025 8:44 AM EST Inhaled Oxygen Concentration - - Weight 63.9 kg (140 lb 12.8 oz) 06/04/2025 8:44 AM EST Height 162.6 cm (5' 4 ) 06/04/2025 8:44 AM EST Body Mass Index 24.17 06/04/2025 8:44 AM EST Plan of Treatment Upcoming Encounters Date Type Department Care Team (Late st Contact Info) Description 06/04/2026 8:20 AM EST Office Visit [facility] [address] [place] [phone] Marci King MD [address] [place] [phone] [email or web address] Health Maintenance Due Date Last Done Comments Adult Td,Tdap Booster 1948 CREATININE LEVEL 1948 POTASSIUM LEVEL 1948 DEPRESSION SCREENING 1960 SMOKING Hx and SMOKELESS TOBACCO SCREENING 1961 HEPATITIS C SCREENING 1966 PNEUMOCOCCAL VACCINES (50+ years) (1 of 2 - PCV) 1967 ZOSTER VACCINES (1 of 2) 05/11/2010 03/16/2010 OSTEOPOROSIS SCREENING INITI AL (ONE-TIME) 2013 DIABETIC EYE EXAM 05/29/2023 RSV VACCINE (1 - 1-dose 75+ series) 2023 INFLUENZA VACCINE (#1) 2025 COVID-19 VACCINE ( - 2024-2 6 season) 2025 TSH LEVEL 06/04/2025 06/04/2024, 05/29/2023 HEMOGLOBIN A1C 10/15/2025 04/17/2025, 05/29/2023 BLOOD PRESSURE 12/02/2025 06/04/2025 HEPATITIS A VACCINES Aged Out No long er eligible based on patient's age to complete this topic HIB VACCINES Aged Out No longer eligi ble based on patient's age to complete this topic IPV VACCINES Aged Out No longer eligi ble based on patient's age to complete this topic MENINGOCOCCAL VACCINES (ACWY) Aged Out No longer eligible based on patient's age to complete this topic MENINGOCOCCAL VACCINES (B) Aged Out N o longer eligible based on patient's age to complete this topic Medical Devices Not on file Procedures Procedure Name Priority Date/Time Associated Diagnosis Comments TSH WITH REFLEX Routine 06/04/2024 10:57 AM EST Postoperative hypothyroidism from Last 3 Months or Most Recently Relevant to Health Maintenance Results * TSH with reflex (06/04/2024 10:57 AM EST) TSH 0.60 0.27 - 4.20 uIU/mL [facility] Blood 06/04/2024 10:5 7 AM EST 06/04/2024 11:06 AM EST Marci King MD LAB BLOOD BKR ORDERABL ES Final Result [facility] [address] [place] [address] from Last 3 Months or Most Recently Relevant to Health Maintenance Insurance [employer] HMO POS EPO MEDICARE PART A & B [facility] POS EPO MEDICARE PART A & B [facility] POS EPO MEDICARE PART A & B [employer] O POS EPO MEDICARE PART A & B [facility] POS EPO MEDICARE PART A & B Member Subscriber Plan / Payer ( fective 2021-) Name:Raghu Geronimo Member ID:[id number] Relation to Subscriber:Self Name:Raghu Geronimo Subscriber ID:[id number] Payer ID:[id number] Group ID:Not on file Type:Medicare Address: [facility] [address] [place] [phone] [facility] POS EPO MEDICARE PART A & B Care Teams Waste Reclaimer Relationship Specialty Start Date End Date Gulshan Zeng MD [address] [place] [id number] PCP - General Internal Medicine 03/09/23 Additional Source Comments The information contained in this document represents components of the legal health record. It is not the complete legal health record.[facility]
--- OUTSIDE RECORDS SUMMARY | 2025-06-17 16:30 | XMS_ITS | Clinical Summary ---
Author Organization [facility] Address [address] [place] [address] Phone Care Team Providers Care Admitting Interviewer Name Role Phone Gulshan Zeng MD Primary Care Provider Allergies Active Allergy Reactions Criticality Noted Date Comments Bee Venom Protein (Honey Bee) Anaphylaxis High 03/08/2010 Chlorthalidone 11/04/2018 Dexamethasone 03/08/2010 Other Reaction(s): Other (See Comments) Irritation,shakiness,p aranoid Hydromorphone 06/11/2016 Other 03/08/2010 Seasonal Sulfa (Sulfonamide Antibiotics) Itching 03/08/2010 Medications azelastine-flu ticasone 137-50 mcg/spray spray,non-aero jimmie spray or apply inside Nose. Active ipratropium-al buteroL (Combivent Respimat) 20-100 mcg/actuation inhaler INHALE 1 PUFF INTO THE LUNGS 4 TIMES DAILY. 1 Active umeclidinium-v ilanteroL (Anoro Ellipta) 62.5-25 mcg/actuation inhaler Inhale into the lungs. Active FREESTYLE LANCETS MISC Test tid 3 Active blood sugar diagnostic (FreeStyle Lite Strips) test strip TEST 3 TIMES A DAY 3 Active diphenoxylate- atropine (LOMOTIL) 2.5-0.025 mg per tablet Take 1 Tablet by mouth 4 times daily as needed for Diarrhea for up to 10 days. 4 Active fexofenadine (JOHANNA) 180 mg tablet Take 1 Tablet by mouth at bedtime. 4 Active omeprazole (PriLOSEC) [address] capsule TAKE 1 CAPSULE BY MOUTH EVERY DAY 90 capsule 3 5 Active levothyroxine sodium (TIROSINT) 137 mcg capsule Take 1 capsule (137 mcg total) by mouth 1 (one) time each day. 90 capsule 1 5 Active timoloL (BETIMOL) 0.5 % ophthalmic solution INSTILL 1 DROP INTO RIGHT EYE 3 TIMES A DAY 5 Active lidocaine (LIDODERM) 5 % patch APPLY 1 PATCH DAILY APPLY TO PAINFUL AREA FOR 12 HOURS PER DAY, REMOVE FOR 12 HOURS 30 patch 5 5 Active loratadine (CLARITIN) 10 mg tablet TAKE 1 TABLET BY MOUTH 1 TIME EACH DAY. 90 tablet 1 5 Active glipiZIDE (Glucotrol XL) 5 mg 24 hr tablet Take 1 tablet (5 mg total) by mouth 1 (one) time each day. Do not crush, chew, or split. 90 tablet 1 5 026 Active LORazepam (ATIVAN) 1 mg tablet Take 1 tablet (1 mg total) by mouth 3 (three) times a day if needed for anxiety. Max Daily Amount: 3 mg 60 tablet 5 Active buPROPion SR (WELLBUTRIN SR) 150 mg 12 hr tablet Take 1 tablet (150 mg total) by mouth 2 (two) times a day. Do not crush, chew, or split. 180 tablet 1 5 Active butalbital-jaylene taminophen-caf feine-codeine (FIORICET WITH CODEINE) 92-644-76-30 mg per capsule Take 1 capsule by mouth every 6 (six) hours if needed for headaches. Max Daily Amount: 4 capsules 60 capsule 5 Active olmesartan (BENICAR) 40 mg tablet Take 1 tablet (40 mg total) by mouth 1 (one) time each day. 90 each 3 5 026 Active hydroCHLOROthi azide 12.5 mg tablet Take 1 tablet (12.5 mg total) by mouth 1 (one) time each day. 90 each 1 5 Active rosuvastatin (CRESTOR) 5 mg tablet TAKE 1 TABLET BY MOUTH 1 TIME EACH DAY. 90 tablet 3 5 Active lisinopril (PRINIVIL,ZEST RIL) 40 mg tablet Take 1 tablet (40 mg total) by mouth 1 (one) time each day. 90 each 3 5 026 Active rosuvastatin (CRESTOR) 5 mg tablet Take 1 tablet (5 mg total) by mouth 1 (one) time each day. 90 tablet 1 5 025 Discontinued Active Problems Problem Noted Date Diagnosed Date History of lung cancer 05/04/2025 Assessment & Plan (05/04/2025 1:49 PM EDT): Ms. Geronimo is a 74 y.o. female, former smoker, who had a right lower lobectomy in February 2020 for a stage Ia pulmonary adenocarcinoma. Her most recent chest CT scan which was performed at [facility] on 04/29/2025 and shows no new or worsening pulmonary nodules or mediastinal/hilar lymphadenopathy to suggest recurrence of metastatic disease in the chest. Her next chest CT scan will be due in 12 months time which will be April 2026 and have a visit at the thoracic surgery department thereafter to discuss results. Patient is advised to call the office prior with any questions or concerns. 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 (CMS/HCC V24, CMS/HCC V28) 04/22/2025 CKD (chronic kidney disease) stage 2, GFR 60-89 ml/min 04/22/2025 Multiple pulmonary nodules 06/03/2023 Other emphysema (CMS/HCC V24, CMS/HCC V28) 04/16 Lung nodule 10/05/2020 Overview (03/14/2024): New finding 09/24/2020, 6-month follow-up planned Postsurgical hypothyroidism 08/12/2020 Primary adenocarcinoma of lo wer lobe of right lung (CMS/HCC V24, CMS/HCC V28) 04/06/2020 Thyroid cancer ([facility] V24, [facility]/HCC V28) 2018 Vitamin D deficiency 06/15/2019 Papillary thyroid carcinoma ([facility] V24, [facility]/ C V28) 05/09/2019 Abnormal positron emission tomography (PET) scan 03/10/2019 Controlled type 2 diabetes m ellitus without complication, without long-term current use of insulin ([facility] V24, [facility] V28) 11/19/2018 Adenocarcinoma, colon ([facility] V24, [facility] V28) 07/18/2017 Essential hypertension 06/07/2017 Colon cancer, ascending ([facility] V24, [facility] V2 8) 05/22/2017 DJD (degenerative joint disease), lumbosacral Allergic rhinitis 10/10/2012 Vitiligo 08/08/2012 Overview (04/30/2024): ? due to sunburn ? due to sunburn Migraines 09/11/2011 Overview (04/30/2024): History of occular migraines since age 10 History of occular migraines since age 10 Osteoporosis 09/11/2011 High cholesterol 04/12/2010 Anxiety 03/08/2010 Overview (04/30/2024): Patient rarely has panic attacks. And rarely uses lorazepam Patient rarely has panic attacks. And rarely use lorazepam Depression 03/08/2010 Heartburn 03/08/2010 Tobacco use disorder 03/08/2010 Encounters Date Type Department Care Team Description 06/08/2025 10:26 AM EST - 06/08/2025 11:59 PM EST Hospital Encounter Radiology Department - [address] [phone] RUQ abdominal pain Discharge Disposition: Home or Self Care 06/08/2025 9:30 AM EST Lab Draw Station - [address] RUQ abdominal pain 06/08/2025 9:00 AM EST Office Visit Adult Medicine [address] [phone] Karon Joseph PA RUQ abdominal pain (Primary Dx) 06/08/2025 Results Follow-Up Adult Medicine [address] [phone] Karon Joseph PA 06/08/2025 Telephone Adult Medicine [address] [phone] Concetta Stanley RN 06/05/2025 Telephone Adult Medicine [address] [phone] Gulshan Zeng MD 05/05/2025 3:15 PM EDT Office Visit Thoracic Surgery - [place] [address] [phone] Sharona Morgan NP History of lung cancer (Primary Dx) 04/29/2025 3:20 PM EDT - 04/29/2025 11:59 PM EDT Hospital Encounter [facility] CT Scan [address] [place] [address] Primary adenocarcinoma of lower lobe of right lung ([facility] V24, [facility] V28) Discharge Disposition: Home or Self Care 04/22/2025 2:30 PM EDT Consult Nephrology [address] [phone] Ryan Pittman MD CKD (chronic kidney disease) stage 2, GFR 60-89 ml/min (Primary Dx); Microalbuminuria; Essential hypertension; 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 and hypertension ([facility] V24, [facility] V28) from Last 3 Months Immunizations Immunization Administration Dates Next Due H1N1 Inj Preservative Free 06/29/2009 Influenza Quadravalent, 0.5m l (Fluzone High-dose) 65yo and older 05/07/2022 Influenza Quadravalent, MDCK , 0.5ml, with preservative (Flucelvax) 6mo and older 04/07/2018 Influenza trivalent, 0.5mL ( Fluad) 65yo and older 05/08/2024 Influenza trivalent, 0.5mL ( Fluzone High-dose) 65yo and older 04/25/2025,05/07/2022,04/15/2021,04/12,05/04/2019,04/27/2017 Influenza trivalent, with pr eservative (Fluzone; Afluria) 6mo and older 07/04/2023,04/23/2016,05/05/2014,04/08,04/16/2012,04/30/2011,04/26/2010 ,04/29/2008 Influenza, Unspecified 04/30/2015 Measles 02/21/2010 Moderna (age 6mo & older) Bi valent, COVID-19, 0.5 mL or 0.25 mL dosage 05/07/2022 Moderna SARS-CoV-2 COVID-19, mRNA, LNP-S, preservative free 05/07/2022,10/07/2020,09/16/2020,09/02 Pneumococcal polysaccharide 23 valent (Pneumovax 23) 2yo and older 11/27/2008 Tdap Tetanus diptheria acell ular pertussis (Boostrix; Adacel) 7yo and older 07/30/2008 Zoster Live 03/16/2010 Surgical History Surgery Date Site/Laterality Comments COLON SURGERY PROCEDURE:COLON SURGERY COLONOSCOPY PROCEDURE:COLONOSCOPY HYSTERECTOMY PROCEDURE:HYSTERECTOMY OOPHORECTOMY PROCEDURE:OOPHORECTOMY HYSTERECTOMY age 26 PROCEDURE: HISTORICAL TOTAL HYSTERECTOMY WITH BSO; COMMENT: uncertain reasons OTHER SURGICAL HISTORY 05/15/2017 Right PROCEDURE: ---- OTHER ----; COMMENT: lap right colectomy OTHER SURGICAL HISTORY 05/15/2017 Right PROCEDURE: [place] LAPS COLECTOMY PRTL W/END CLST & CLSR DSTL SGM; COMMENT: adenocarcinoma COLONOSCOPY 05/28/2018 PROCEDURE: HISTORICAL COLONOSCOPY; COMMENT: negative Medical History Medical History Date Comments Depression DX:Depression Colon cancer ([facility] V24, [facility] V28) DX:Colon cancer ([facility]) Anxiety DX:Anxiety DJD (degenerative joint disease) DX:DJD (degenerative joint disease) High cholesterol DX:High cholest flip Hypertension DX:Hypertension Migraine DX:Migraine;COMM ENT:since age 10, occular migraine Osteoporosis DX:Osteoporosis Juvenile arthritis ([facility] V24, [facility] V28) DX:Juvenile arthritis (HCC); COMMENT: Rx aspirin GI bleeding DX:GI bleeding; COMMENT: felt due to ASA Vitiligo 08/08/2012 DX:Vitiligo History of other specified c onditions presenting hazards to health DX:History of other speci fied conditions presenting hazards to health; COMMENT: precancerous tumor-andra History of malignant neoplas m of large intestine DX:History of malignant neop lasm of large intestine; COMMENT: 2017 Adenocarcinoma of right lung (CMS/HCC V24, CMS/HCC V28) 04/12/2020 DX:Adenocarcinoma of right l amee (HCC) Family History Medical History Relation Name Comments Diabetes Father Breast cancer Mother dx 80 Cancer Mother dx 80 breast Uterine cancer Paternal Grandmother Diabetes Sister 1 Arthritis Sister 2 OA hands Relation Name Status Comments Daughter Alive car accident Father dementia, diabe justo Mother dx 80 breast CA Paternal Grandmother Sister 1 Sister 2 Sister 3 diabetes Social History Tobacco Use Types Packs/Day Years Used Date Smoking Tobacco: Former Cigarettes 0.5 51 0 07/30/1966 - 07/29/2017 Smokeless Tobacco: Never Tobacco Cessation:Counseling Given: Not Answered Alcohol Use Standard Drinks/Week Comments Yes 0 (1 standard drink = 0.6 oz pur e alcohol) Housing Instability Answer Date Recorde d Are you worried that in the next 2 months you may not have stable housing? No 06/08/2024 Food Access & Nutrition Answer Date Rec orded Do you have access to a vari ety of food including fruits and vegetables? Yes 06/08/2024 Access to Healthcare Answer Date Record ed Within the last 3 months, ho w many times did you visit the emergency department for your medical care? 0 06/08/2024 Financial Risk Answer Date Recorded How hard is it for you to pa y for the very basics like food, housing, medical care, and air conditioning / heating? Patient declined 06/08/2024 Transportation Answer Date Recorded Has the lack of transportati on kept you from meetings, work, or from getting things needed for daily living? No Has the lack of transportati on kept you from medical appointments or from getting medications? No 06/08/2024 Social Isolation Answer Date Recorded How often do you feel lonely or isolated from th ose around you? Rarely 06/08/2024 Food Risk Answer Date Recorded Within the past 12 months we worried whether our food would run out before we got money to buy more. Never true 06/08/2024 Within the past 12 months th e food we bought just didn't last and we didn't have money to get more. Never true 06/08/2024 Dependent Care Answer Date Recorded Do you need help finding or paying for care for your loved ones. For example, childcare aide or elderly care for an older adult? No 06/08/2024 Education Answer Date Recorded Do you think completing more education or training, like finishing a GED, going to college, or learning a trade, would be helpful for you? No 06/08/2024 Employment and Income Answer Date Recor ded During the last four weeks, have you been actively looking for work? No 06/08/2024 Living Situation Answer Date Recorded What is your living situation? Unrecognized valu e 06/08/2024 Comments No Sex and Gender Information Value Date Recorded Sex Assigned at Not on file Legal Sex Female 8:58 PM EST Gender Identity Not on file Sexual Orientation Not on file Obstetrics History Para Term AB IAB SAB Ectopic Multiple Livin g Live Births 2 2 2 2 Date Outcome GA Total Labor Labor/2nd/3rd Weight Sex Type Anes PTL Jaz A1 A5 Name Clin Term Term Last Filed Vital Signs Vital Sign Reading Time Taken Comments Blood Pressure 150/90 06/08/2025 8:52 AM EST C Pulse 76 06/08/2025 8:52 AM EST Temperature 36.7 C (98.1 F) 06/08/2025 8:52 AM EST Respiratory Rate 14 06/08/2025 8:52 AM EST Oxygen Saturation 96% 05/05/2025 3:09 PM EDT Inhaled Oxygen Concentration - - Weight 63.5 kg (140 lb) 06/08/2025 8:52 AM EST Height 160 cm (5' 3 ) 06/08/2025 8:52 AM EST Body Mass Index 24.8 06/08/2025 8:52 AM EST Plan of Treatment Upcoming Encounters Date Type Department Care Team (Late st Contact Info) Description 07/09/2025 9:30 AM EST Office Visit Adult Medicine [address] [phone] Gulshan Zeng MD [address] [place] [address] 10/26/2025 1:00 PM EDT Office Visit Adult [address] [phone] Gulshan Zeng MD [address] [place] [address] 10/28/2025 3:15 PM EDT Office Visit Nephrology [address] [phone] Ryan Pittman MD [address] [facility] [address] [place] [address] 02/22/2026 1:00 PM EDT Office Visit Adult [address] [phone] Gulshan Zeng MD [address] [place] [address] Health Maintenance Due Date Last Done Comments Diabetes: Annual Foot Exam 1960 Diabetes: Annual Retina Eye Exam 1960 Pneumococcal Vaccine: 50+ Years (2 of 2 - PCV) 11/27/2009 11/27/2008 Zoster Vaccines (1 of 2) 05/11/2010 03/16/2010 DTaP,Tdap,and Td Vaccines (2 - Td or Tdap) 07/30/2018 07/30/2008 Falls Risk Assessment 08/30/2019 Lung Cancer Screening (Low Dose CT) 08/30/2019 Medicare Annual Wellness Visit 08/30/2019 Osteoporosis Screening (Bone Density Screening) 08/30/2019 RSV Immunization Adult Patients (1 - 1-dose 75+ series) 2023 Depression Screening 07/30/2024 06/08/2024 COVID-19 Vaccine ( season) 2025 05/07/2022, 05/07/2022, 07/20/2021, Additional history exists Social Influencers of Health Screening 06/08/2025 06/08/2024 Diabetes: Blood Sugar Control Test (HGBA1C) 10/15/2025 04/17/2025, 09/04/2024, 05/29/2023 Diabetes: Annual Urine Albumin-Creatinine Ratio (uACR) 04/17/2026 04/17/2025, 05/29/2023 Diabetes: Annual GFR (Glomerular Filtration Rate) 06/08/2026 06/08/2025, 04/17/2025, 09/04/2024 Hypertension/CHF/CAD Annual BMP Blood Test 06/08/2026 06/08/2025, 04/17/2025, 09/04/2024 Cholesterol Screening (Lipid Panel) 04/17/2030 04/17/2025, 09/04/2024, 05/29/2023 Hepatitis C Screening Completed 07/06/2015 Breast Cancer Screening Discontinued 08/05/19, 07/20/2023, 07/19/2022, Additional history exists Influenza Vaccine Completed 04/25/2025, , 07/04/2023, Additional history exists HIB Vaccines Aged Out No longer eligi ble based on patient's age to complete this topic HPV Vaccines Aged Out No longer eligi ble based on patient's age to complete this topic Hepatitis A Vaccines Aged Out No long er eligible based on patient's age to complete this topic Hepatitis B Vaccines Aged Out No long er eligible based on patient's age to complete this topic IPV Vaccines Aged Out No longer eligi ble based on patient's age to complete this topic MMR Vaccines Aged Out No longer eligi ble based on patient's age to complete this topic Meningococcal ACWY Vaccine Aged Out N o longer eligible based on patient's age to complete this topic Meningococcal B Vaccine Aged Out No l onger eligible based on patient's age to complete this topic RSV Immunization Patients Under 20 months Aged Out No longer eligible based on patient's age to complete this topic Varicella Vaccines Aged Out No longer eligible based on patient's age to complete this topic Procedures Procedure Name Priority Date/Time Associated Diagnosis Comments US ABDOMEN LIMITED STAT 06/08/2025 10 :49 AM EST RUQ abdominal pain CBC WITH AUTO DIFFERENTIAL Routine 06/08/2025 9:20 AM EST RUQ abdominal pain COMPREHENSIVE METABOLIC PANEL Routine 06/08/2025 9:20 AM EST RUQ abdominal pain CBC AND DIFFERENTIAL Routine 06/08/2025 9:20 AM EST RUQ abdominal pain CT CHEST WO CONTRAST Routine 04/29/2025 4:06 PM EDT Primary adenocarcinoma of lower lobe of right lung (CMS/HCC V24, CMS/HCC V28) MICROALBUMIN CREATININE URINE RATIO Routine 04/17/2025 10:35 AM EDT Type II or unspecified type diabetes mellitus with renal manifestations, uncontrolled(250.42) (CMS/HCC V24, CMS/HCC V28) Microalbuminuria HEMOGLOBIN A1C Routine 04/17/2025 9:14 AM EDT Type II or unspecified type diabetes mellitus with renal manifestations, uncontrolled(250.42) (CMS/HCC V24, CMS/HCC V28) LIPID PANEL WITH REFLEX TO DIRECT LDL Routine 04/17/2025 9:14 AM EDT High cholesterol COMPREHENSIVE METABOLIC PANEL Routine 04/17/2025 9:14 AM EDT Type II or unspecified type diabetes mellitus with renal manifestations, uncontrolled(250.42) (CMS/HCC V24, CMS/HCC V28) Encounter for long-term (current) use of medications Essential hypertension MG MAMMO DIGITAL SCREENING W STAR BILAT Routine 08/05/2024 7:52 AM EST Encounter for screening mammogram for breast cancer HM HEPATITIS C SCREENING Routine 07/06/2015 from Last 3 Months or Most Recently Relevant to Health Maintenance Results * US Abdomen Limited (06/08/2025 10:49 AM EST) Anatomical Region Laterality Modality Body Ultrasound 06/08/2025 10:5 0 AM EST Impressions 06/08/2025 10:52 AM EST Hepatic steatosis. -------- FINAL REPORT -------- Dictated By: Scarlet Suárez Dictated Date: 06/08/2025 10:50 ET Assigned Physician: Scarlet Suárez Reviewed and Electronically Signed By: Scarlet Suárez Signed Date: 06/08/2025 10:52 ET Workstation ID: [id number] Transcribed By: Self Edit Transcribed Date: 06/08/2025 10:50 ET Narrative 06/08/2025 10:52 AM EST ABDOMINAL ULTRASOUND-LIMITED History: Right upper quadrant abdominal pain. Comparison: CT abdomen pelvis 04/29/2018. FINDINGS: There is no evidence of cholelithiasis. The common bile duct is not dilated, measuring 3 mm. The gallbladder wall is not thickened. No pericholecystic fluid is seen. No ascites are seen. Evaluation of the pancreas is limited by overlying bowel gas. The liver measures 16.7 cm in length and demonstrates increased echotexture. No focal lesions are seen in the liver and there is no evidence of intrahepatic ductal dilation. Normal hepatopedal flow is seen in the main portal vein. No evidence of hydronephrosis, mass, or calculus was seen in the right kidney. The right kidney measures 11.1 cm in greatest length. Procedure Note Scarlet Suárez MD - 06/08/2025 ABDOMINAL ULTRASOUND-LIMITED History: Right upper quadrant abdominal pain. Comparison: CT abdomen pelvis 04/29/2018. FINDINGS: There is no evidence of cholelithiasis. The common bile duct isnot dilated, measuring 3 mm. The gallbladder wall is not thickened. Nopericholecystic fluid is seen. No ascites are seen. Evaluation of the pancreas is limited by overlying bowel gas. The liver measures 16.7 cm in length and demonstrates increasedechotexture. No focal lesions are seen in the liver and there is noevidence of intrahepatic ductal dilation. Normal hepatopedal flow is seenin the main portal vein. No evidence of hydronephrosis, mass, or calculus was seen in the rightkidney. The right kidney measures 11.1 cm in greatest length. IMPRESSION: Hepatic steatosis. -------- FINAL REPORT -------- Dictated By: Scarlet Suárez Dictated Date: 06/08/2025 10:50 ET Assigned Physician: Scarlet Suárez Reviewed and Electronically Signed By: Scarlet Suárez Signed Date: 06/08/2025 10:52 ET Workstation ID: [id number] Transcribed By: Self Edit Transcribed Date: 06/08/2025 10:50 ET us Karon PENA IMG US PROCEDURES Final Resul t * (ABNORMAL) CBC auto differential (06/08/2025 9:20 AM EST) WBC 6.9 4.8 - 10.8 K/mcL LAB HEMETOLOGY METHOD 06/08/2025 12:42 PM [facility] RBC 4.80 3.80 - 4.80 M/mcL LAB HEMETOLOGY METHOD 06/08/2025 12:42 PM [facility] Hemoglobin 14.1 11.5 - 16.0 g/dL LAB HEMETOLOGY METHOD 06/08/2025 12:42 PM [facility] Hematocrit 43.0 35.0 - 47.0 % LAB HEMETOLOGY METHOD 06/08/2025 12:42 PM [facility] MCV 89.8 79.0 - 98.0 FL LAB HEMETOLOGY METHOD 06/08/2025 12:42 PM [facility] MCH 29.4 27.0 - 32.0 pcg LAB HEMETOLOGY METHOD 06/08/2025 12:42 PM [facility] MCHC 32.8 32.0 - 37.0 g/dL LAB HEMETOLOGY METHOD 06/08/2025 12:42 PM [facility] RDW 12.7 11.0 - 15.0 % LAB HEMETOLOGY METHOD 06/08/2025 12:42 PM [facility] Platelets 246 130 - 400 K/mcL LAB HEMETOLOGY METHOD 06/08/2025 12:42 PM [facility] MPV 12.2(H) 7.0 - 11.0 FL LAB HEMETOLOGY METHOD 06/08/2025 12:42 PM [facility] NRBC 0.0 <1.0 % LAB HEMETOLOGY METHOD 06/08/2025 12:42 PM [facility] NRBC Absolute 0.00 <0.10 K/mcL LAB HEMETOLOGY METHOD 06/08/2025 12:42 PM [facility] Neutrophils Relative 59.7 % LAB HEMETOLOGY METHOD 06/08/2025 12:42 PM [facility] Lymphocytes Relative 29.0 % LAB HEMETOLOGY METHOD 06/08/2025 12:42 PM [facility] Monocytes Relative 8.7 % LAB HEMETOLOGY METHOD 06/08/2025 12:42 PM [facility] Eosinophils Relative 1.9 % LAB HEMETOLOGY METHOD 06/08/2025 12:42 PM [facility] Basophils Relative 0.4 % LAB HEMETOLOGY METHOD 06/08/2025 12:42 PM [facility] Immature Granulocytes Relative 0.3 % LAB HEMETOLOGY METHOD 06/08/2025 12:42 PM [facility] Neutrophils Absolute 4.11 1.50 - 7.00 K/mcL LAB HEMETOLOGY METHOD 06/08/2025 12:42 PM [facility] Lymphocytes Absolute 2.00 1.00 - 5.00 K/mcL LAB HEMETOLOGY METHOD 06/08/2025 12:42 PM [facility] Monocytes Absolute 0.60 0.20 - 1.00 K/mcL LAB HEMETOLOGY METHOD 06/08/2025 12:42 PM [facility] Eosinophils Absolute 0.13 0.00 - 0.50 K/mcL LAB HEMETOLOGY METHOD 06/08/2025 12:42 PM [facility] Basophils Absolute 0.03 0.00 - 0.20 K/[facility] LAB HEMETOLOGY METHOD 06/08/2025 12:42 PM [facility] Immature Granulocytes Absolute 0.02 0.00 - 0.03 K/[facility] LAB HEMETOLOGY METHOD 06/08/2025 12:42 PM [facility] Blood Venous blood specimen / Unknown Venipuncture / Unknown 06/08/2025 9:20 AM EST 06/08/2025 9:20 AM EST us Karon PENA LAB BLOOD ORDERABLES Final Re sult [facility] [address] [place] [address], * (ABNORMAL) Comprehensive metabolic panel (06/08/2025 9:20 AM EST) Only the most recent of2 resultswithin the time period is included. Sodium 139 133 - 145 mmol/L LAB CHEMISTRY METHOD 06/08/2025 5:44 PM [facility] Potassium 4.8 3.5 - 5.5 mmol/L LAB CHEMISTRY METHOD 06/08/2025 5:44 PM [facility] Chloride 103 96 - 110 mmol/L LAB CHEMISTRY METHOD 06/08/2025 5:44 PM [facility] CO2 30 21 - 32 mmol/L LAB CHEMISTRY METHOD 06/08/2025 5:44 PM [facility] Anion Gap 6 3 - 11 LAB CHEMISTRY METHOD 06/08/2025 5:44 PM [facility] Glucose 171(H) 70 - 100 mg/dL LAB CHEMISTRY METHOD 06/08/2025 5:44 PM [facility] BUN 22 5 - 25 mg/dL LAB CHEMISTRY METHOD 06/08/2025 5:44 PM [facility] Creatinine 0.98 0.50 - 1.10 mg/dL LAB CHEMISTRY METHOD 06/08/2025 5:44 PM [facility] eGFR 60 >=60 mL/min/1. 73m2 LAB CHEMISTRY METHOD 06/08/2025 5:44 PM [facility] Comment:Calculation based on the Chronic Kidney Disease Epidemiology Collaboration (CKD-EPI) equation refit without adjustment for race. BUN/Creatinine Ratio 22.4 LAB CHEMISTRY METHOD 06/08/2025 5:44 PM [facility] Calcium 9.3 8.5 - 10.5 mg/dL LAB CHEMISTRY METHOD 06/08/2025 5:44 PM [facility] AST (SGOT) 13 10 - 42 unit/L LAB CHEMISTRY METHOD 06/08/2025 5:44 PM [facility] ALT (SGPT) 30 10 - 60 unit/L LAB CHEMISTRY METHOD 06/08/2025 5:44 PM [facility] Alkaline Phosphatase 113 42 - 121 unit/L LAB CHEMISTRY METHOD 06/08/2025 5:44 PM [facility] Total Protein 6.7 6.0 - 8.0 g/dL LAB CHEMISTRY METHOD 06/08/2025 5:44 PM [facility] Albumin 3.9 3.2 - 5.0 g/dL LAB CHEMISTRY METHOD 06/08/2025 5:44 PM [facility] Total Bilirubin 0.4 0.0 - 1.4 mg/dL LAB CHEMISTRY METHOD 06/08/2025 5:44 PM [facility] Blood Venous blood specimen / Unknown Venipuncture / Unknown 06/08/2025 9:20 AM EST 06/08/2025 9:20 AM EST us Karon PENA LAB BLOOD ORDERABLES Final Re sult [facility] [address] [place] [address], * CT Chest wo Contrast (04/29/2025 4:06 PM EDT) Anatomical Region Laterality Modality Body Computed Tomogra phy 05/04/2025 9:37 AM EDT Impressions 05/04/2025 9:50 AM EDT Impression: 1. Stable right lower lobectomy sequela. 2. No suspicious developing pulmonary nodule or thoracic [place]adenopathy[place] ([id number]) -------- FINAL REPORT -------- Dictated By: Samara Franco Dictated Date: 05/04/2025 09:37 ET Assigned Physician: Samara Franco Reviewed and Electronically Signed By: Samara Franco Signed Date: 05/04/2025 09:50 ET Workstation ID: [id number] Transcribed By: Self Edit Transcribed Date: 05/04/2025 09:37 ET Narrative 05/04/2025 9:50 AM EDT History: Lung carcinoma. Surveillance imaging. Status post right lower lobectomy 03/16/20 (adenocarcinoma). There is a personal history of colon carcinoma. Comparison: 05/14/24 Technique: Helical volumetric imaging of the thorax was performed without IV contrast. DLP: 173.45 mGy/cm [place] Iterative reconstruction technique Findings: Right lower lobectomy sequela are again demonstrated. The trachea and remaining central bronchial tree are patent. Diffuse bronchial wall thickening is consistent with bronchitis. There is severe emphysematous destruction of the pulmonary parenchyma. A new group of tiny (sub-3 mm) tree-in-bud nodules is seen in the central right middle lobe (image 131 series 3), almost certainly infectious/inflammatory in nature. There is peripheral mucous plugging at the base the left lower lobe. Several homogeneously calcified nodules are again seen, consistent with old granulomatous disease. No suspicious developing nodule is noted. No pleural or pericardial effusions are seen. The heart remains normal in size. Severe, three-vessel coronary artery calcification is again noted. No developing thoracic lymphadenopathy is seen. A small portion of the upper abdomen included on the lowest images through the thorax is without significant abnormality. A small hemangioma is seen within the T11 vertebral body. There are old, healed bilateral rib fractures. Procedure Note Samara Franco MD - 05/04/2025 History: Lung carcinoma. Surveillance imaging. Status post right lowerlobectomy 03/16/20 (adenocarcinoma). There is a personal history of coloncarcinoma. Comparison: 05/14/24 Technique: Helical volumetric imaging of the thorax was performed withoutIV contrast. DLP: 173.45 mGy/cm [place] Iterative reconstruction technique Findings: Right lower lobectomy sequela are again demonstrated. The trachea andremaining central bronchial tree are patent. Diffuse bronchial wallthickening is consistent with bronchitis. There is severe emphysematousdestruction of the pulmonary parenchyma. A new group of tiny (sub-3 mm) tree-in-bud nodules is seen in the centralright middle lobe (image 131 series 3), almost certainlyinfectious/inflammatory in nature. There is peripheral mucous plugging atthe base the left lower lobe. Several homogeneously calcified nodules areagain seen, consistent with old granulomatous disease. No suspiciousdeveloping nodule is noted. No pleural or pericardial effusions are seen. The heart remains normal in size. Severe, three-vessel coronary arterycalcification is again noted. No developing thoracic lymphadenopathy isseen. A small portion of the upper abdomen included on the lowest images throughthe thorax is without significant abnormality. A small hemangioma is seen within the T11 vertebral body. There are old,healed bilateral rib fractures. IMPRESSION: Impression: 1. Stable right lower lobectomy sequela. 2. No suspicious developing pulmonary nodule or thoraciclymphadenopathy. [employer] JEAN ([id number]) -------- FINAL REPORT -------- Dictated By: Samara Franco Dictated Date: 05/04/2025 09:37 ET Assigned Physician: Samara Franco Reviewed and Electronically Signed By: Samara Franco Signed Date: 05/04/2025 09:50 ET Workstation ID: [id number] Transcribed By: Self Edit Transcribed Date: 05/04/2025 09:37 ET Sharona Morgan NP IMG CT PROCEDURES Final Res ult * Microalbumin creatinine urine ratio (04/17/2025 10:35 AM EDT) Creatinine, Urine 122.0 mg/dL LAB CHEMISTRY METHOD 04/17/2025 3:19 PM EDT [facility] Microalb, Ur 14.6 0.0 - 29.0 mg/L LAB CHEMISTRY METHOD 04/17/2025 3:19 PM EDT [facility] Microalb/Creat Ratio 12 <30 mg/g creat LAB CHEMISTRY METHOD 04/17/2025 3:19 PM EDT [facility] Urine Urine specimen obtained by clean catch procedure / Unknown Non-blood Collection / Unknown 04/17/2025 10:35 AM EDT 04/17/2025 10:35 AM EDT us Gulshan Zeng MD LAB URINE ORDERABLES Final Resu lt [facility] [address] [place] [address], [place] [phone] * (ABNORMAL) Lipid panel with reflex to direct LDL (04/17/2025 9:14 AM EDT) Cholesterol 232(H) 0 - 200 mg/dL LAB CHEMISTRY METHOD 04/17/2025 1:08 PM EDT [facility] Triglycerides 334(H) 0 - 150 mg/dL LAB CHEMISTRY METHOD 04/17/2025 1:08 PM T [facility] HDL 57 >=40 mg/dL LAB CHEMISTRY METHOD 04/17/2025 1:08 PM EDT [facility] LDL Calculated 108(H) 0 - 100 mg/dL LAB CHEMISTRY METHOD 04/17/2025 1:08 PM EDT [facility] Comment:Estimated LDL Calcul ated using equation: Total cholesterol - HDL cholesterol - (Triglycerides/5) VLDL Cholesterol Sergio 66.8 mg/dL LAB CHEMISTRY METHOD 04/17/2025 1:08 PM EDT [facility] Non HDL Chol. (LDL+VLDL) 175(H) <145 mg/dL LAB CHEMISTRY METHOD 04/17/2025 1:08 PM EDT [facility] Chol/HDL Ratio 4.1 0.0 - 4.4 LAB CHEMISTRY METHOD 04/17/2025 1:08 PM EDT [facility] Blood Venous blood specimen / Unknown Venipuncture / Unknown 04/17/2025 9:14 AM EDT 04/17/2025 9:14 AM EDT us Gulshan Zeng MD LAB BLOOD ORDERABLES Final Resu lt Performing Organization Address [facility] de Phone Number [facility] [address] [place] [address], [place] [phone] * (ABNORMAL) Hemoglobin A1c (04/17/2025 9:14 AM EDT) Hemoglobin A1C 7.5(H) <6.5 % LAB CHEMISTRY METHOD 04/17/2025 1:30 PM EDT [facility] Mean Bld Glu Estim. 169 mg/dL LAB CHEMISTRY METHOD 04/17/2025 1:30 PM EDT [facility] Blood Venous blood specimen / Unknown Venipuncture / Unknown 04/17/2025 9:14 AM EDT 04/17/2025 9:14 AM EDT us Gulshan Zeng MD LAB BLOOD ORDERABLES Final Resu lt Performing Organization Address [facility]/ZIP Co de Phone Number [facility] [address] [place] [address], [place] [phone] * MG Mammo Digital Screening w Star bilat (08/05/2024 7:52 AM EST) Anatomical Region Laterality Modality Breast Bilateral Mammography 08/05/2024 5:13 PM EST Impressions 08/05/2024 5:16 PM EST BILATERAL BREASTS: Negative, no evidence of malignancy. Normal interval follow- up is recommended in 12 months. BREAST DENSITY: B - There are scattered areas of fibroglandular density. BI-RADS CATEGORY: 1 - NEGATIVE RECOMMENDATION: Screening bilateral mammogram is recommended in 1 year. Mammo Location: [facility], [address] [place] [address], [id number], . -------- FINAL REPORT -------- Dictated By: Marni Singh Dictated Date: 08/05/2024 17:13 ET Assigned Physician: Marni Singh Reviewed and Electronically Signed By: Marni Singh Signed Date: 08/05/2024 17:16 ET Workstation ID: [id number] Transcribed By: Self Edit Transcribed Date: 08/05/2024 17:13 ET Narrative 08/05/2024 5:16 PM EST STUDY: Bilateral screening mammography with tomosynthesis and CAD TECHNIQUE: Bilateral full-field digital screening mammography is obtained and read in conjunction with computer-aided detection. Tomosynthesis as well as 2-D C view imaging were obtained. COMPARISON: Comparison made to multiple prior, most recent July 20, 2023, and most remote May 29, 2015. BILATERAL BREASTS: No significant masses, suspicious calcifications or other abnormalities are seen. Procedure Note Marni Singh MD - 08/05/2024 STUDY: Bilateral screening mammography with tomosynthesis and CAD TECHNIQUE: Bilateral full-field digital screening mammography is obtainedand read in conjunction with computer-aided detection. Tomosynthesis aswell as 2-D C view imaging were obtained. COMPARISON: Comparison made to multiple prior, most recent June, and most remote May 29, 2015. BILATERAL BREASTS: No significant masses, suspicious calcifications orother abnormalities are seen. IMPRESSION: BILATERAL BREASTS: Negative, no evidence of malignancy. Normal intervalfollow-up is recommended in 12 months. BREAST DENSITY: B - There are scattered areas of fibroglandular density. BI-RADS CATEGORY: 1 - NEGATIVE RECOMMENDATION: Screening bilateral mammogram is recommended in 1 year. Mammo Location: [facility], [address] [place] [address], [address], . -------- FINAL REPORT -------- Dictated By: Marni Singh Dictated Date: 08/05/2024 17:13 ET Assigned Physician: Marni Singh Reviewed and Electronically Signed By: Marni Singh Signed Date: 08/05/2024 17:16 ET Workstation ID: [id number] Transcribed By: Self Edit Transcribed Date: 08/05/2024 17:13 ET Gulshan Zeng MD IMG BI PROCEDURES Final Result * Hepatitis C Screening (07/06/2015) Hepatitis C Screening Abstracted us Historical Provider HEALTH MAINTENANCE Final Result from Last 3 Months or Most Recently Relevant to Health Maintenance Insurance [employer] DOME[employer]IC MEDICARE Advance Directives Documents on File Type Date Recorded Patient Manager Wound Care Expl anation Health Care Decision (hx) 05/26/2019 AD POWER DIRECTIVE Health Care Decision (hx) 05/26/2019 AD POWER DIRECTIVE Health Care Decision (hx) 05/26/2019 AD POWER DIRECTIVE Health Care Decision (hx) 05/26/2019 AD POWER DIRECTIVE Health Care Decision (hx) 05/26/2019 AD POWER DIRECTIVE Health Care Decision (hx) 05/26/2019 AD POWER DIRECTIVE Health Care Decision (hx) 05/26/2019 AD POWER DIRECTIVE Health Care Decision (hx) 05/26/2019 AD POWER DIRECTIVE Health Care Decision (hx) 05/26/2019 AD POWER DIRECTIVE Health Care Decision (hx) 05/26/2019 AD POWER DIRECTIVE Health Care Decision (hx) 05/26/2019 AD POWER DIRECTIVE Health Care Decision (hx) 05/26/2019 AD POWER DIRECTIVE Health Care Decision (hx) 05/26/2019 AD POWER DIRECTIVE Health Care Decision (hx) 05/26/2019 AD POWER DIRECTIVE Health Care Decision (hx) 05/26/2019 AD POWER DIRECTIVE Health Care Decision (hx) 05/26/2019 AD POWER DIRECTIVE Health Care Decision (hx) 05/26/2019 AD POWER DIRECTIVE Health Care Decision (hx) 05/26/2019 AD POWER DIRECTIVE Health Care Decision (hx) 05/26/2019 AD POWER DIRECTIVE Health Care Decision (hx) 05/26/2019 AD POWER DIRECTIVE Health Care Decision (hx) 05/26/2019 AD POWER DIRECTIVE Health Care Decision (hx) 05/26/2019 AD POWER DIRECTIVE Health Care Decision (hx) 05/26/2019 AD POWER DIRECTIVE Health Care Decision (hx) 05/26/2019 AD POWER DIRECTIVE Health Care Decision (hx) 05/26/2019 AD POWER DIRECTIVE Care Teams Admitting Interviewer Relationship Specialty Start Date End Date Gulshan Zeng MD [address] [place] [address] PCP - General Internal Medicine 04/23/16
--- OUTSIDE RECORDS SUMMARY | 2025-06-17 16:30 | XMS_ITS | Encounter Summary ---
Author Organization [facility] [place] [address] Care Team Providers Care Truck Farmer Name Role Phone Gulshan Zeng MD Primary Care Provider [phone] Reason for Visit * Reason Onset Date Comments Error 06/05/2025 Encounter Details Date Type Department Care Team (Late st Contact Info) Description 06/05/2025 Telephone Adult Medicine [address] [phone] Gulshan Zeng MD [address] [place] [address] Social History Tobacco Use Types Packs/Day Years Used Date Smoking Tobacco: Former Cigarettes 0.5 51 0 07/30/1966 - 07/29/2017 Smokeless Tobacco: Never Alcohol Use Standard Drinks/Week Comments Yes 0 [...] care for your loved ones. For example, child study team director or elderly care for an older adult? [...] on file Sexual Orientation Not on file documented as of this encounter Plan of Treatment Upcoming Encounters Date Type Department Care Team (Late st Contact Info) Description 07/09/2025 9:30 AM EST Office Visit Adult Medicine [address] [phone] Gulshan Zeng MD [address] [place] [address] 10/26/2025 1:00 PM EDT Office Visit Adult Medicine [address], [place] [phone] Gulshan Zeng MD [address] [place] [address] 10/28/2025 3:15 PM EDT Office Visit Nephrology - [address] [phone] Ryan Pittman MD [address] [facility] [address] [place] [address] 02/22/2026 1:00 PM EDT Office Visit Adult Medicine South - [address] [phone] Gulshan Zeng MD [address] [place] [address] documented as of this encounter Visit Diagnoses Not on filedocumented in this encounter Additional Health Concerns Assessment Noted Time PHQ-9 Depression Total Score: 0 06/08/20 24 2:26 PM EST documented as of this encounter Care Teams Truck Farmer Relationship Specialty Start Date End Date Gulshan Zeng MD [address] [place] [address] PCP - General Internal Medicine 04/23/16 documented as of this encounter
--- OUTSIDE RECORDS SUMMARY | 2025-06-17 16:30 | XMS_ITS ---
Author Name [facility] Organization Unknown Care Team Organization Name Specialty Phone Email Start Date End Da te [facility] ACO 03/18/2025 [facility] 02/01/2023 4 [facility] 10/04/2022 4 [facility] Kathrine Servin Primary Care 06/06/202202/27
--- OUTSIDE RECORDS SUMMARY | 2025-06-17 16:30 | XMS_ITS | Patient Health Record ---
Author Organization [facility] Address [address] [place] [address] Care Team Providers Care Print Shop Stenographer Name Role Phone Gulshan Zeng MD Primary Care Provider Gonzalo Rivers Jr Unavailable Allergies Allergen (clinical drug ingredient) Drug/Non Drug Allergy documented on EMR Reaction Allergy Type Onset Date Status sulfamethoxazole / trimethoprim Bactrim rash Drug Allergy Active Reason For Referral No Information Medications Medication SIG (Take, Route, Frequency, Duration) Notes Start Date End Date Status Rosuvastatin Calcium 5 MG Tablet Oral; Duration: 90 Active LORazepam 1 MG Tablet Oral; Duration: 20 Active glipiZIDE ER 2.5 MG Tablet Extended Release 24 Hour Oral; Duration: 90 Active Eczyxhbcvm-AQXB-Amyq-Cod 29-824-50-30 MG Capsule TAKE 1 CAPSULE BY MOUTH EVERY 4 HOURS NEEDED FOR HEADACHES FOR UP TO 10 DAYS. Oral; Duration: 7 Active Brimonidine Tartrate 0.2 % Solution INSTILL 1 DROP INTO BOTH EYES TWICE A DAY Ophthalmic; Duration: 90 Active Anoro Ellipta 62.5-25 MCG/ACT Aerosol Powder Breath Activated Inhalation; Duration: 90 Active Combivent Respimat 20-100 MCG/ACT Aerosol Solution Inhalation; Duration: 90 Active Methocarbamol 750 MG Tablet TAKE 1 TABLE T BY MOUTH 4 TIMES DAILY FOR 10 DAYS. Oral; Duration: 10 Active buPROPion HCl ER (SR) 150 MG Tablet Extended Release 12 Hour TAKE 1 TABLET BY MOUTH TWICE A DAY Oral; Duration: 90 Active Terbinafine HCl 250 MG Tablet TAKE 1 TABLET BY MOUTH EVERY DAY Oral; Duration: 30 Active Levothyroxine Sodium 137 MCG Tablet Oral; Duration: 90 Active MiraLax (colon prep) 17 GM/SCOOP Powder mixed with Gatorade or Crystal Light Orally begin at 5:00 p.m. the day before the procedure; Duration: 1 day 04/05/2023 Active Omeprazole 20 MG Capsule Delayed Release Oral; Duration: 90 Active Lisinopril 30 MG Tablet TAKE 1 TABLET BY MOUTH EVERY DAY Oral; Duration: 90 Active Social History Tobacco Use: Social History Observation Description Date Details (start date - stop date) Former Smoker NA - NA Social History Drugs/Alcohol: Social Info Question Answer Notes Alcohol Screen Did you have a drink containing alcohol in the past year? No Points 0 Interpretation Negative Tobacco Use: Social Info Question Answer Notes Tobacco Use/Smoking Patient is a former smoker How long has it been since you last smoked? 5-10 years Additional Details Category Social Info Options Details Miscellaneous: Marital status: Occupation: nurse Problems Problem Type SNOMED Code ICD Code Onset Dates Problem Status W/U Status Risk Notes Problem Colon cancer screening (711505529) Colon cancer screening (Z12.11) Active confirmed Problem Pre-procedure evaluation check (454720904) Encounter for other preprocedural examination (Z01.818) Active confirmed Problem History of malignant neoplasm of colon (815252058) Personal history of colon cancer (Z85.038) Active confirmed Problem Long-term current use of drug therapy (550864892) shelter (current) use of oral hypoglycemic drugs (Z79.84) Active confirmed Plan Of Treatment Future Test Test Name Order Date COLONOSCOPY 04/05/2023 Insurance Providers Payer Name Payer Address Payer Phone Subscriber Number Group Number Insured Name Patient Relationship to Insured Coverage Start Date Coverage End Date [facility] [place] [address] [place], [place] [phone] [id number] SARITHA CRUZ Self - patient is the insured MEDICARE OF [place] [address] [place] [address] [id number] SARITHA CRUZ Self - patient is the insured Medical (General) History Medical History History ICD Code Diabetes mellitus type 2 Hypertension Hyperlipidemia Thyroid cancer COPD Lung nodule Osteoporosis Migraine headaches Anxiety/depression Degenerative joint disease Surgical History Surgery Date(Month/Year) Right ileocolectomy 2017 Thyroidectomy Right lower lung nodule resection/precan cerous hysterectomy with appendix age 26
--- OUTSIDE RECORDS SUMMARY | 2025-06-17 16:30 | XMS_ITS | Clinical Summary ---
Author Organization [facility] Address [address] [place] [address] Care Team Providers Care Guyline Operator Name Role Phone Gulshan Zeng MD Primary Care Provider [phone] Allergies Active Allergy Reactions Criticality Noted Date Comments Bee Sting Anaphylaxis High 03/08/2010 Dexamethasone Other (See Comments) 03/08/2010 Irritation,floyd phelps ranoid Hydromorphone 06/11/2016 Chlorthalidone 11/04/2018 Seasonal 03/08/2010 Sulfa Antibiotics Itching 03/08/2010 Medications Medication Sig Dispensed Refills Start Date End Date Status LORazepam (ATIVAN) 1 MG tablet Take 1 tablet (1 mg total) by mouth as needed. 0 Active lisinopril (PRINIVIL,ZESTRIL) tablet 10 mg Take 2 tablets (20 mg total) by mouth daily. 0 Active buPROPion (WELLBUTRIN) 75 MG tablet Take 2 tablets (150 mg total) by mouth daily. 0 Active Levothyroxine Sodium 137 MCG CAPS Take 137 mcg by mouth every morning on an empty stomach. 0 Active COMBIVENT RESPIMAT 20-100 MCG/ACT inhaler INHALE 1 PUFF INTO THE LUNGS 4 TIMES DAILY. 0 08/24/2020 Active Umeclidinium-Vilantero l (Anoro Ellipta) 62.5-25 MCG/INH AEPB Inhale into the lungs. 0 Active glipiZIDE (GLUCOTROL XL) ER 24 hr tablet 2.5 mg Take 1 tablet (2.5 mg total) by mouth daily. 0 Active brimonidine (ALPHAGAN) 0.2 % ophthalmic solution 1 drop every 12 (twelve) hours. 0 Active rosuvastatin (CRESTOR) tablet 5 mg Take 1 tablet (5 mg total) by mouth daily. 0 Active omeprazole (PriLOSEC) 20 MG capsule Take 1 capsule (20 mg total) by mouth daily. 0 Active butalbital-acetaminoph en-caffeine 50-325-40 MG per tablet Take 1 tablet by mouth every 4 (four) hours as needed for pain. 0 Active Azelastine-Fluticasone 137-50 MCG/ACT SUSP spray or apply inside Nose. 0 Active Active Problems Problem Noted Date Diagnosed Date Other emphysema 04/16/2021 Lung nodule < 6cm on CT 10/05/2020 Overview: New finding 09/24/2020, 6-month follow-up planned Primary adenocarcinoma of lower lobe of right nell ng 04/06/2020 Cancer Staging:Pathologic stage from 03/16/2020:Stage IA1(pT1a, pN0, cM0) - Signed by Tang Allen MD on 04/16/2021 Papillary thyroid carcinoma 05/09/2019 Cancer Staging:Pathologic stage from 05/26/2019:Stage I(T1a(6), N0, cM0) - Signed by Tang Allen MD on 06/13/2019 Controlled type 2 diabetes m iris without complication, without long-term current use of insulin 11/19/2018 Colon cancer, ascending 05/22/2017 Cancer Staging:Clinical stage from 05/15/2017:Stage IIA(T3(1), N0, M0) - Signed by Tang Allen MD on 11/20/2017 DJD (degenerative joint disease), lumbosacral Allergic rhinitis 10/10/2012 Vitiligo 08/08/2012 Overview: Overview: ? due to sunburn Migraines 09/11/2011 Overview: Overview: History of occular migraines since age 10 Osteoporosis 09/11/2011 High cholesterol 04/12/2010 Anxiety 03/08/2010 Overview: Overview: Patient rarely has panic attacks. And rarely uses lorazepam Depression 03/08/2010 Heartburn 03/08/2010 History of tobacco use 03/08/2010 Family History Medical History Relation Name Comments Diabetes Father Cancer Mother breast Uterine cancer Paternal Grandmother Diabetes Sister Relation Name Status Comments Father Mother Paternal Grandmother Sister Social History Tobacco Use Types Packs/Day Years Used Date Smoking Tobacco: Former Cigarettes 0.5 50 1 967 - 07/29/2017 Smokeless Tobacco: Never Tobacco Cessation:Ready to Q uit: No; Counseling Given: No Alcohol Use Standard Drinks/Week Comments Yes 0 (1 standard drink = 0.6 oz pur e alcohol) rare Sex and Gender Information Value Date Recorded Sex Assigned at Not on file Gender Identity Not on file Sexual Orientation Not on file Job Start Date Occupation Industry Not on file Not on file Not on file Last Filed Vital Signs Vital Sign Reading Time Taken Comments Blood Pressure 121/68 06/06/2023 10:37 AM EST Pulse 84 06/06/2023 10:37 AM EST Temperature 36.6 C (97.8 F) 06/06/2023 10:37 AM EST Respiratory Rate - - Oxygen Saturation 97% 06/06/2023 10:37 AM EST Inhaled Oxygen Concentration - - Weight 66.7 kg (147 lb) 06/06/2023 10:37 AM EST Height 157.5 cm (5' 2 ) 04/17/2022 8:54 AM EDT Body Mass Index 26.89 04/17/2022 8:54 AM EDT Plan of Treatment Health Maintenance Due Date Last Done Comments Hepatitis C Screening 1950 COVID-19 Vaccine (#1) 1953 Depression Screening 1960 Preventative Health Evaluation 1966 Shingrix-Zoster Vaccine (1 of 2) 1967 Pneumococcal Vaccine (2 of 2 - PCV) 11/27/2009 11/27/2008 Fall Risk Assessment 2013 Osteoporosis Screening (DEXA Scan) 2013 DTap / Tdap / Td (2 - Td or Tdap) 07/30/2018 07/30/2008 RSV Adult > 60+ Yrs or (1 - 1-dose 75+ series) 2023 Influenza Vaccine (#1) 2025 2, 04/15/2021, 04/12/2020, Additional history exists Hepatitis B Vaccines Aged Out No long er eligible based on patient's age to complete this topic RSV Ped < 20 months Aged Out No longe r eligible based on patient's age to complete this topic Care Teams Guyline Operator Relationship Specialty Start Date End Date Gulshan Zeng MD PCP - General Internal Medicine 05/22/17
--- OUTSIDE RECORDS SUMMARY | 2025-06-17 16:31 | XMS_ITS | Encounter Summary ---
Author Organization [facility] [place] [address] Care Team Providers Care Network Professional Name Role Phone Gulshan Zeng MD Primary Care Provider [phone] Encounter Details Date Type Department Care Team (Late st Contact Info) Description 06/08/2025 Results Follow-Up Adult Medicine [facility] [address] [place] [address] Karon Joseph PA [address] [place], [place] Social History Tobacco Use Types Packs/Day Years [...] care for your loved ones. For example, child's nurse or elderly care for an older adult? [...] 9:30 AM EST Office Visit Adult Medicine [address] [phone] Gulshan Zeng MD [address] [place] [address] 10/26/2025 1:00 PM EDT Office Visit Adult Medicine [address] [phone] Gulshan Zeng MD [address] [place] [address] 10/28/2025 3:15 PM EDT Office Visit Nephrology [address] [phone] Ryan Pittman MD [address] [facility] [address] [place] [id number] 02/22/2026 1:00 PM EDT Office Visit [facility] [place] - [address] [phone] Gulshan Zeng MD [address] [place] [address] documented as of this encounter Visit Diagnoses Not on filedocumented in this encounter Additional Health Concerns Assessment Noted Time PHQ-9 Depression Total Score: 0 06/08/20 24 2:26 PM EST documented as of this encounter Care Teams Network Professional Relationship Specialty Start Date End Date Gulshan Zeng MD [address] [place] [address] PCP - General Internal Medicine 04/23/16 documented as of this encounter
== END 2025-06-17 09:39 | disposition home or self-care (01) ==
LOC: HO.HPS 08:53
PROVIDERS: PCP Internal Medicine; Visit Provider Internal Medicine Pulmonary Disease
DX: J44.9 Chronic obstructive pulmonary disease, unspecified (principal); C34.31 Malignant neoplasm of lower lobe, right bronchus or lung
CPT/HCPCS: 99214